=== PATIENT | male | born 1930 | race Caucasian/White ===

== ENCOUNTER 2016-09-08 10:42 | Day surgery (SDC) | payer MEDICARE, BC ==
[2016-09-03 16:10] VITALS: BMI 21.9
[~2016-09-08 10:42] MED LIST: ALPRAZolam 0.25 MG TAB PO PRN; ALPRAZolam 0.5 MG TAB PO PRN; ASPIRIN 325 MG TAB PO STA; SODIUM CHLORIDE 0.9% 1,000 ML in EMPTY BAG 1 BAG IV ONE
[2016-09-08 11:22] LABS: Anion Gap 12 mmol/L; Blood Urea Nitrogen 24 mg/dL (9-20); Calcium 9.2 mg/dL (8.4-10.2); Carbon Dioxide 23 mmol/L (22-30); Chloride 105 mmol/L (98-107); Glucose 84 mg/dL (74-99); Non-African American GFR(MDRD) >60 (>60 ml/min/1.73 sqM); Potassium 4.4 mmol/L (3.5-5.1); Sodium 140 mmol/L (137-145)
[2016-09-08 11:31] LABS: INR 1.4 (<1.1); Prothrombin Time 13.4 sec (9.0-12.0)
[2016-09-08 11:49] LABS: Anisocytosis Slight; Basophils % (A) 1 %; CH 22.8; CHCM 30.8; Eosinophils # (A) 0.1 k/uL (0-0.7); Eosinophils % (A) 1 %; HDW 3.24; Hypochromasia Marked; Luc # (Auto) 0.17; Luc % (Auto) 3; Lymphocytes # (A) 1.3 k/uL (1.0-4.8); Lymphocytes % (A) 24 %; MCH 23.3 pg (25.0-35.0); MCHC 31.3 g/dL (31.0-37.0); MCV 74.3 fL (80.0-100.0); Mean Platelet Volume 6.8; Microcytosis Moderate; Monocytes # (A) 0.3 k/uL (0-1.0); Monocytes % (A) 5 %; Neutrophils # (A) 3.6 k/uL (1.3-7.7); Neutrophils % (A) 67 %; RDW 17.7 % (11.5-15.5); WBC 5.4 k/uL (3.8-10.6); WBC (Perox) 5.42
[2016-09-08] MEDS ORDERED: MIDAZOLAM 2 MG/2 ML VIAL IV ONE (15:32)
[2016-09-08] MEDS ORDERED: LIDOCAINE 2% INJ 20 MG/ML SQ ONE (15:34)
[2016-09-08] MEDS ORDERED: HEPARIN SODIUM 1,000 UN/ML (10ML VL) IV ONE (15:40)
[2016-09-08] MEDS ORDERED: NITROGLYCERIN 1000MCG/10ML SYRINGE INTRAARTER ONE (16:07)
[2016-09-08] MEDS: niCARdipine Syringe (1,000 mcg/10 mL) INTRAARTER ONE ×2 (16:07→16:11)
[2016-09-08] MEDS ORDERED: HYDROmorphone 2 MG/ML 1 ML SYRINGE IVP ONE (16:09)
[2016-09-08] MEDS ORDERED: IODIXANOL 320 MG/ML 100 ML IV ONE ×3 (16:16)
[2016-09-08] MEDS ORDERED: CLOPIDOGREL 75 MG TAB PO ONE (16:20)
[2016-09-08] MEDS ORDERED: DOCUSATE 100 MG CAP PO PRN (16:22)
[2016-09-08] MEDS ORDERED: SODIUM CHLORIDE 0.9% 1,000 ML IV SCH (16:30)
--- NOTE | 2016-09-08 16:50 | IR ---
Fluoroscopy HISTORY: Peripheral vascular disease 11.2 minutes fluoroscopy time supplied to the referring clinician. 478 intraoperative C-arm images d ocument the procedure. See dictated report from cardiology.
[2016-09-08] MEDS ORDERED: WARFARIN 3 MG TAB PO SCH (18:00)
[2016-09-08] MEDS: CALCIUM CARB-VIT D 500MG-200UN 1 EACH TAB PO SCH (20:18)
[2016-09-08] MEDS: GABAPENTIN 300 MG CAP PO SCH (20:18)
[2016-09-08] MEDS ORDERED: ATORVASTATIN 40 MG TAB PO SCH (21:00)
[2016-09-09 05:52] VITALS: PULSE 72; RESP 18
[2016-09-09 06:48] LABS: Non-African American GFR(MDRD) >60 (>60 ml/min/1.73 sqM)
[2016-09-09] MEDS ORDERED: PANTOPRAZOLE 40 MG TABLET PO SCH (07:30)
[2016-09-09 08:11] LABS: Anisocytosis Slight; Basophils % (A) 0 %; CH 22.5; CHCM 30.3; Eosinophils % (A) 1 %; HCT 27.9 % (39.0-53.0); HDW 3.17; HGB 8.9 gm/dL (13.0-17.5); Hypochromasia Marked; Luc # (Auto) 0.08; Luc % (Auto) 2; Lymphocytes # (A) 0.4 k/uL (1.0-4.8); Lymphocytes % (A) 9 %; MCH 23.7 pg (25.0-35.0); MCHC 31.7 g/dL (31.0-37.0); MCV 74.6 fL (80.0-100.0); Mean Platelet Volume 7.1; Microcytosis Moderate; Monocytes # (A) 0.3 k/uL (0-1.0); Monocytes % (A) 6 %; Neutrophils # (A) 3.6 k/uL (1.3-7.7); Neutrophils % (A) 81 %; RBC 3.74 m/uL (4.30-5.90); RDW 17.6 % (11.5-15.5); WBC 4.4 k/uL (3.8-10.6); WBC (Perox) 4.35
[2016-09-09 08:19] LABS: Anion Gap 10 mmol/L; Blood Urea Nitrogen 23 mg/dL (9-20); Calcium 8.6 mg/dL (8.4-10.2); Carbon Dioxide 21 mmol/L (22-30); Chloride 108 mmol/L (98-107); Glucose 162 mg/dL (74-99); Sodium 139 mmol/L (137-145)
[2016-09-09] MEDS ORDERED: CLOPIDOGREL 75 MG TAB PO SCH (09:00)
[2016-09-09] MEDS ORDERED: FUROSEMIDE 20 MG TAB PO SCH (09:00)
[2016-09-09] MEDS ORDERED: ATENOLOL 50 MG TAB PO SCH (09:00)
[2016-09-09] MEDS ORDERED: ASPIRIN 81 MG CHEW PO SCH (09:00)
--- NOTE | 2016-09-09 09:08 | PCN ---
PERCUTANEOUS PERIPHERAL INTERVENTION DATE OF SERVICE: 09/08/2016 PERFORMING PHYSICIAN: Rd Candelario MD, gambling box person. PROCEDURE PERFORMED: 1. Selective left SFA angiogram. 2. Selective left popliteal angiogram. 3. Selective left below the knee angiogram. 4. Selective right common femoral artery angiogram. 5. An atherectomy of the left popliteal artery. 6. Successful balloon angioplasty of the left popliteal using 6.0 x 40 mm drug coated balloon with a good angiographic result. INDICATION: This is a pleasant 85-year-old gentleman who was experienced left leg discomfort. He is known to have severe PAD and he is known to have severe disease involving the left popliteal. APPROACH: Right common femoral artery. COMPLICATIONS: None. LEVEL OF SEDATION: Moderate with a sedation length of 42 minutes. PROCEDURE DESCRIPTION: After obtaining an informed consent, the patient was brought to the cardiac laborer steel handling. The right common femoral artery was cannulated using micropuncture technique. The micropuncture wire passed easily then I placed a 6 Kosovan sheath in the right common femoral artery. Subsequently, I did select the left SFA using a 5 Kosovan Rim catheter with 0.035 advantage wire. After that, I did exchange by 6 Kosovan 11 cm sheath into 6 Kosovan 55 cm sheath using the advantage wire. The tip of the long sheath was positioned in the left common femoral artery. Subsequently, I did wire the left SFA and left popliteal using a 0.035 advantage wire. I did perform an angiogram of the left SFA, left popliteal and left below the knee. After that, I did exchange my 0.035 advantage wire into 0.014 wire using an 0.035 quick cross catheter. After that, I did multiple runs of atherectomy using a TurboHawk device. Then I did balloon angioplasty initially using 5.0 and then 6.0 mm balloon and the following angiogram showed good angiographic results. At that point, I did exchange my long sheath into short sheath using 0.035 advantage wire. The procedure was completed without any complication. POSTPROCEDURE MANAGEMENT: 1. Dual antiplatelet therapy. 2. Risk factor modifications. 3. Follow up with the patient. KENNETH
[2016-09-09] MEDS: CALCIUM CARB-VIT D 500MG-200UN 1 EACH TAB PO SCH (09:44)
[2016-09-09] MEDS: GABAPENTIN 300 MG CAP PO SCH (09:45)
[2016-09-09] MEDS ORDERED: CHOLECALCIFEROL 1,000 UNIT TAB PO SCH (12:00)
[2016-09-09 13:01] VITALS: BP 124/64; TEMP 97.8
--- NOTE | 2016-09-10 22:36 | DS ---
DATE OF ADMISSION: 09/08/2016 DATE OF DISCHARGE: 09/09/2016 BRIEF HISTORY: This is a pleasant 85-year-old gentleman who was having left lower extremity discomfort related to intermittent claudication. He underwent a peripheral angiogram in the past and was found to have severe bilateral SFA disease. He underwent LAWNMOWER REPAIR MECHANIC of the right SFA and was brought yesterday to undergo LAWNMOWER REPAIR MECHANIC of the left SFA. He underwent successful atherectomy and balloon angioplasty of the left SFA/ popliteal, with good angiographic results and without any complication. The procedure was performed from the right groin, which is soft and non-tender and without any bruises. The patient is going to be discharged home on dual antiplatelet therapy, and will follow up with the patient as an outpatient in the office. KENNETH
[2016-09-11] MEDS ORDERED: WARFARIN 2 MG TAB PO SCH (18:00)
== END 2016-09-09 13:26 | disposition home or self-care (01) ==
LOC: CATHCVL 10:42 → 6SEL 16:13 → CATHCVL 09-09 13:26
PROVIDERS: ATTEND Internal Medicine Interventional Cardiology
DX: I70.212 Atherosclerosis of native arteries of extremities with intermittent claudication, left leg (principal); I10 Essential (primary) hypertension; E78.5 Hyperlipidemia, unspecified; I25.10 Atherosclerotic heart disease of native coronary artery without angina pectoris; Z79.01 Long term (current) use of anticoagulants; Z79.02 Long term (current) use of antithrombotics/antiplatelets; Z79.82 Long term (current) use of aspirin; Z79.899 Other long term (current) drug therapy; Z95.0 Presence of cardiac pacemaker; Z95.1 Presence of aortocoronary bypass graft
CPT/HCPCS: 37225; 99153; 99152; 80048 ×2; 85025 ×2; 85610; C1894 ×2; C1725; C1769 ×5; C1887; C1714; C2623; C1760; J2001; J2250; J1170; Q9967; J1644

== ENCOUNTER 2017-01-10 15:55 | Inpatient (IN) | payer MEDICARE, BC ==
[2017-01-10 19:52] VITALS: BMI 26.9
[2017-01-10] MEDS ORDERED: traMADol 50 MG TAB PO PRN (22:26)
[2017-01-10] MEDS ORDERED: SODIUM CHLORIDE 0.9% 1,000 ML IV SCH (22:30)
[2017-01-10] MEDS ORDERED: LEVOFLOXACIN 500MG-D5W PMX 500 MG in DEXTROSE/WATER 1 100ML.BAG IVPB SCH (23:00)
[2017-01-10] MEDS: ATORVASTATIN 40 MG TAB PO SCH (23:03)
[2017-01-10] MEDS: GABAPENTIN 300 MG CAP PO SCH (23:03)
[2017-01-10 23:07] LABS: Particle Count 3334; RBC,Urine >182 /hpf (0-5); WBC,Urine >182 /hpf (0-5)
[2017-01-10 23:09] LABS: UA Billing (MACRO vs. MICRO) MICRO
[2017-01-11] MEDS: SODIUM CHLORIDE 0.9% 1,000 ML IV SCH ×3 (00:24→22:21)
--- NOTE | 2017-01-11 06:52 | HP ---
HISTORY AND PHYSICAL DATE OF SERVICE: 01/10/2017 CHIEF COMPLAINT: Hematuria. HISTORY OF PRESENT ILLNESS: This 86-year-old gentleman with a past medical history of CAD, history of hypertension, hyperlipidemia, myocardial infarction, DJD, history of prostate cancer, prostate disorder, history of CAD stent being followed by Dr. Verdin in the [place] area had history of prostate cancer about 12 to 14 years ago. Patient had a short course of treatment. The details are not available at this time. Apparently the patient continues to have hematuria. The patient started hematuria today which is bright red in color and the patient went to [facility] and the physician from the [facility] transferred the patient directly to [facility]. Urology has been contacted and the patient admitted for further evaluation and treatment. The hemoglobin was found to be 9 at [place]. Potassium was 3.2. The patient is on aspirin, Plavix and Coumadin also. There is no history of any fever or rigors. No history of any headache, loss of consciousness or seizures at this time. PAST MEDICAL HISTORY: History of CAD, history of hypertension, hyperlipidemia, history of myocardial infarction, history of prostate cancer, history of DJD, history of CAD, stent, history of pacemaker and peripheral vascular disease. MEDICATIONS PRIOR TO ADMISSION: 1. Vitamin D3, 2000 daily. 2. Vitamin D3 1 daily. 3. Coumadin 3 mg Tuesday, Tuesday, Tuesday, , Tuesday and Coumadin 2 mg Tuesday and Tuesday. 4. Protonix 40 mg daily. 5. Neurontin 300 mg p.o. t.i.d. 6. Lasix 40 mg . 7. Plavix 75 mg p.o. daily. 8. Lipitor 40 mg q.h.s. 9. Tenormin 50 mg p.o. daily. 10.Aspirin 81 mg daily. ALLERGIES: Allergies are none. FAMILY HISTORY: No history of heart disease or strokes in the family. SOCIAL HISTORY: Occasional alcohol intake. No history of smoking. REVIEW OF SYSTEMS: ENT: Diminished hearing and diminished vision. CARDIOVASCULAR SYSTEM: As mentioned earlier. RESPIRATORY SYSTEM: No cough. GI: No nausea. : As mentioned earlier. NERVOUS SYSTEM: No numbness or weakness. ALLERGY/IMMUNOLOGY: No history asthma or hayfever. MUSCULOSKELETAL: As mentioned earlier. HEMATOLOGY/ONCOLOGY: No history of anemia. ENDOCRINE: No history of diabetes or hypothyroidism. CONSTITUTIONAL: As mentioned earlier. DERMATOLOGY: Negative. RHEUMATOLOGY: Negative. PSYCHIATRY: As mentioned earlier. PHYSICAL EXAMINATION: The patient is alert and oriented x3. Pulse is 70, blood pressure 166/72, respirations 15, temperature 98.1 pulse ox 100% on room air. HEENT: Conjunctivae normal. Oral mucosa moist. Neck is no jugular venous distention. No lymph node enlargement. CARDIOVASCULAR: S1, S2 normal. Ejection systolic murmur present. No S3, no S4 present. RESPIRATORY: Breath sounds diminished at the bases. No rhonchi, no crackles. ABDOMEN: Soft, nontender. No mass palpable. LEGS: No edema, no swelling. NERVOUS SYSTEM: Higher functions as mentioned earlier. Moves all 4 limbs. No focal motor or sensory deficits. LYMPHATICS: No lymphadenopathy of the neck, axillae or groin. SKIN: No ulcer, rash, or bleeding. LABS: Labs are awaited. ASSESSMENT: 1. Acute hematuria for evaluation. 2. Anemia. 3. Hypokalemia. 4. Peripheral vascular disease. 5. History of coronary artery disease, stent. 6. Hypertension. 7. Hyperlipidemia. 8. History of myocardial infarction. 9. History of degenerative joint disease. 10.Coumadin monitoring. 11.History of pacemaker. RECOMMENDATION AND DISCUSSION: In this 86-year-old gentleman who presented with multiple medical issues, at this time I recommend to continue current medications and symptomatic treatment. Recommend to hold the antiplatelet and Coumadin for now and I would recommend consult urology and cardiology consultations. Otherwise the prognosis guarded because of multiple medical issues. We will try to review the old charts. Further recommendations to follow. MMODL / IJN: [id number] / MTDD
[2017-01-11 07:50] LABS: Anisocytosis Moderate; CH 20.8; CHCM 28.8; HCT 30.2 % (39.0-53.0); HDW 4.49; HGB 8.5 gm/dL (13.0-17.5); Hypochromasia Marked; MCH 20.3 pg (25.0-35.0); MCHC 28.2 g/dL (31.0-37.0); Mean Platelet Volume 6.9; Microcytosis Marked; Poikilocytosis Moderate; RBC 4.19 m/uL (4.30-5.90); RDW 22.8 % (11.5-15.5); WBC 3.7 k/uL (3.8-10.6)
[2017-01-11 07:51] LABS: INR 2.5 (<1.2)
[2017-01-11] MEDS: CALCIUM CARB-VIT D 500MG-200UN 1 EACH TAB PO SCH (07:52)
[2017-01-11] MEDS: ATENOLOL 50 MG TAB PO SCH (07:52)
[2017-01-11] MEDS: PANTOPRAZOLE 40 MG/10 ML VIAL IVP SCH (07:52)
[2017-01-11] MEDS: GABAPENTIN 300 MG CAP PO SCH ×3 (07:52→22:40)
[2017-01-11] MEDS: FUROSEMIDE 40 MG TAB PO SCH (07:52)
[2017-01-11] MEDS: CHOLECALCIFEROL 1,000 UNIT TAB PO SCH (07:52)
[2017-01-11 08:40] LABS: Anion Gap 9 mmol/L; Blood Urea Nitrogen 29 mg/dL (9-20); Calcium 8.7 mg/dL (8.4-10.2); Carbon Dioxide 26 mmol/L (22-30); Chloride 103 mmol/L (98-107); Glucose 81 mg/dL (74-99); Non-African American GFR(MDRD) 56 (>60 ml/min/1.73 sqM); Potassium 4.1 mmol/L (3.5-5.1); Sodium 138 mmol/L (137-145)
--- NOTE | 2017-01-11 12:27 | P.CRDCN ---
History of Present Illness Consult date: 01/11/17 History of present illness: This is an 86-year-old male past medical history significant for CAD with subsequent CABG, permanent pacemaker, diabetes mellitus, hypertension, chronic atrial fibrillation on terminal makeup operator anticoagulation with coumadin and severe peripheral vascular disease. In August of this year he underwent successful balloon angioplasty of the left popiteal and stent placement to right SFA. He follows with Dr. Candelario as an outpatient. We have been asked to him in consultation for management of anticoagulation secondary to anemia. Apparently approximately one week ago he was found to have a hemoglobin of 6.5 per his primary physician and was transfused 2 units of PRBCs. Starting Tuesday he noticed bright red blood in his urine. Denies clots. Coumadin and plavix have been held since last night. At the time of my exam he is seen sitting up in bed with family at the bedside. He denies chest pain, palpitations, nausea or vomiting. He states he does feel dizzy and short of breath at times with exertion. Telemetry tracings reveal 100% ventricular paced rhythm with no ectopy. EKG has been ordered for baseline. Current cardiac medications include coumadin, lasix 40 mg daily, plavix 75 mg daily, lipitor 40 mg daily, atenolol 50 mg daily and aspirin 81 mg daily. Hgb today 8.5, INR 2.5. Review of Systems CONSTITUTIONAL: Denies fever. Denies chills. EYES: Denies blurred vision. Denies vision changes. Denies eye pain. EARS, NOSE, MOUTH & THROAT: Denies headache. Denies sore throat. Denies ear pain. CARDIOVASCULAR: Denies chest pain. Complains of intermittent shortness of breath. Denies orthopnea. Denies PND. Denies palpitations. RESPIRATORY: Denies cough. GASTROINTESTINAL: Denies abdominal pain. Denies diarrhea. Denies constipation. Denies nausea. Denies vomiting. MUSCULOSKELETAL: Denies myalgias. INTEGUMENTARY: Denies pruitis. Denies rash. NEUROLOGIC: Denies numbness. Denies tingling. Denies weakness. PSYCHIATRIC: Denies anxiety. Denies depression. ENDOCRINE: Denies fatigue. Denies weight change. Denies polydipsia. Denies polyurina. GENITOURINARY: Complains of hematuria. Denies burning or urgency with micturation. HEMATOLOGIC: Denies history of anemia. Past Medical History Past Medical History: Coronary Artery Disease (CAD), GERD/Reflux, Hyperlipidemia , Hypertension, Myocardial Infarction ([place]), Osteoarthritis (OA), Prostate Disorder, Vascular Disorder Additional Past Medical History / Comment(s): hx prostate cancer "about 12 to 14 years ago, poor circulation in legs, uses wheelchair or walker, hx gout, gets rash on back. Last Myocardial Infarction Date:: unknown History of Any Multi-Drug Resistant Organisms: None Reported Past Surgical History: Heart Catheterization With Stent, Pacemaker Additional Past Surgical History / Comment(s): donna Cataracts, stent rt leg. pacmaker places about "16 to 18 years ago" Past Anesthesia/Blood Transfusion Reactions: No Reported Reaction Date of Last Stent Placement:: unknown Type of Cardiac Device: Permanent Pacemaker Device Placement Date:: unknown Past Psychological History: No Psychological Hx Reported Smoking Status: Never smoker Past Alcohol Use History: Occasional Past Drug Use History: None Reported - Past Family History Mother Family Medical History: No Reported History Additional Family Medical History / Comment(s): . Father Family Medical History: Asthma Additional Family Medical History / Comment(s): in his 50's from asthma. Medications and Allergies Home Medications Medication Instructions Recorded Confirmed Type Atenolol [Tenormin] 50 mg PO DAILY 06/27/15 01/10/17 History Atorvastatin [Lipitor] 40 mg PO HS 06/27/15 01/10/17 History Gabapentin [Neurontin] 300 mg PO TID 06/27/15 01/10/17 History Pantoprazole Sodium [Protonix] 40 mg PO DAILY 06/27/15 01/10/17 History Cholecalciferol [Vitamin D3] 2,000 unit PO DAILY 08/26/15 01/10/17 History Clopidogrel [Plavix] 75 mg PO DAILY #90 tab 08/28/15 01/10/17 Rx Aspirin [Adult Low Dose Aspirin EC] 81 mg PO DAILY 09/07/16 01/10/17 History Warfarin [Coumadin] 2 mg PO SUSA 09/07/16 01/10/17 History Warfarin [Coumadin] 3 mg PO MOTUWETHFR 09/07/16 01/10/17 History Calcium Carbonate/Vitamin D3 1 tab PO DAILY 01/10/17 01/10/17 History [Calcium 500-Vit D3 200 Tablet] Furosemide [Lasix] 40 mg PO DAILY 01/10/17 01/10/17 History Allergies Allergy/AdvReac Type Severity Reaction Status Date / Time No Known Allergies Allergy Verified 01/10/17 18:59 Physical Exam Vitals: Vital Signs Temp Pulse Resp BP Pulse Ox 01/11/17 10:20 72 16 01/11/17 08:00 72 16 01/11/17 07:00 97.1 F L 72 16 129/61 96 01/11/17 00:00 70 15 01/10/17 18:43 98.1 F 70 15 166/72 100 Intake and Output 01/10/17 01/11/17 01/11/17 22:59 06:59 14:59 Intake Total 550 Output Total 100 500 Balance -100 50 Intake: Intake, IV Titration 550 Amount Levofloxacin 500Mg-D5w 100 Pmx 500 mg In Dextrose/ Water 1 100ml.bag @ 100 mls/hr IVPB Q24H [facility] Rx#: [id number] Sodium Chloride 0.9% 1, 450 000 ml @ 75 mls/hr IV . [id number] [facility] Rx#:[id number] Output: Urine 100 500 Other: Voiding Method Urinal Urinal Weight 73.5 kg GENERAL: This is a 86-year-old male in no apparent distress at the time of my examination. HEENT: Head is atraumatic, normocephalic. Pupils are equal, round. Sclerae anicteric. Conjunctivae are clear. Mucous membranes of the mouth are moist. Neck is supple. There is no jugular venous distention. No carotid bruit is heard. LUNGS: Clear to auscultation no wheezes, rales or rhonchi. No chest wall tenderness is noted on palpation or with deep breathing. HEART: Regular rate and rhythm without murmurs, rubs or gallops. S1 and S2 heard. ABDOMEN: Soft, nontender. Bowel sounds are heard. No organomegaly noted. EXTREMITIES: Trace right lower extremity edema, nonpitting. No edema left lower extremity. NEUROLOGIC: Patient is awake, alert and oriented x3. Results 01/11/17 07:16 01/11/17 07:16 Coagulation 01/11/17 Range/Units 07:16 PT 24.0 H (9.0-12.0) sec CBC 01/11/17 Range/Units 07:16 WBC 3.7 L (3.8-10.6) k/uL RBC 4.19 L (4.30-5.90) m/uL Hgb 8.5 L (13.0-17.5) gm/dL Hct 30.2 L (39.0-53.0) % Plt Count 194 (150-450) k/uL Comprehensive Metabolic Panel 01/11/17 Range/Units 07:16 Sodium 138 (137-145) mmol/L Potassium 4.1 (3.5-5.1) mmol/L Chloride 103 (98-107) mmol/L Carbon Dioxide 26 (22-30) mmol/L BUN 29 H (9-20) mg/dL Creatinine 1.22 (0.66-1.25) mg/dL Glucose 81 (74-99) mg/dL Calcium 8.7 (8.4-10.2) mg/dL Current Medications Generic Name Dose Route Start Last Admin Trade Name Freq PRN Reason Stop Dose Admin Acetaminophen 500 mg 01/11/17 00:11 Tylenol Tab PO Q6HR PRN Fever and/ or MILD Pain Alprazolam 0.25 mg 01/11/17 00:11 Xanax PO TID PRN Anxiety Atenolol 50 mg 01/11/17 09:00 01/11/17 07:52 Tenormin PO 50 mg DAILY [facility] Administration Atorvastatin Calcium 40 mg 01/10/17 22:30 01/10/17 23:03 Lipitor PO 40 mg HS [facility] Administration Calcium Carbonate 1 each 01/11/17 09:00 01/11/17 07:52 Oscal 500+D PO 1 each DAILY [facility] Administration Cholecalciferol 2,000 unit 01/11/17 09:00 01/11/17 07:52 Vitamin D3 PO 2,000 unit DAILY [facility] Administration Furosemide 40 mg 01/11/17 09:00 01/11/17 07:52 Lasix PO 40 mg DAILY [facility] Administration Gabapentin 300 mg 01/10/17 22:30 01/11/17 07:52 Neurontin PO 300 mg TID [facility] Administration Sodium Chloride 1,000 mls @ 75 mls/hr 01/10/17 23:15 01/11/17 00:24 Saline 0.9% IV 75 mls/hr .[id number] [facility] Administration Pantoprazole Sodium 40 mg 01/11/17 09:00 01/11/17 07:52 Protonix IVP 40 mg DAILY [facility] Administration Tramadol HCl 50 mg 01/10/17 22:26 Ultram PO QID PRN MODERATE Pain Intake and Output 01/10/17 01/11/17 01/11/17 22:59 06:59 14:59 Intake Total 550 Output Total 100 500 Balance -100 50 Intake: Intake, IV Titration 550 Amount Levofloxacin 500Mg-D5w 100 Pmx 500 mg In Dextrose/ Water 1 100ml.bag @ 100 mls/hr IVPB Q24H [facility] Rx#: [id number] Sodium Chloride 0.9% 1, 450 000 ml @ 75 mls/hr IV . [id number] [facility] Rx#:[id number] Output: Urine 100 500 Other: Voiding Method Urinal Urinal Weight 73.5 kg 01/11/17 07:16 01/11/17 07:16 Assessment and Plan Assessment: ASSESSMENT 1. Hypochromic microcytic anemia 2. Paroxysmal atrial fibrillation on terminal makeup operator anticoagulation with coumadin 3. Severe peripheral vascular disease with recent balloon angioplasty and right SFA stenting 4. History of permanent pacemaker implantation 5. History of stable coronary artery disease 6. Hyperlipidemia PLAN Further evaluation with possible hematology or GI consultation to confirm the source of anemia. Hold coumadin and plavix at this time until hemoglobin has stabilized. These medications should be restarted as soon as is possible for continued thromboembolic event prevention as well as protection of recent SFA stent. This risk has been explained to the patient and the family. Feel free to call with any further questions or concerns. Nurse Practitioner note has been reviewed, I agree with a documented findings and plan of care. Patient was seen and examined.
--- NOTE | 2017-01-11 17:50 | P.GSCN ---
History of Present Illness Consult date: 01/11/17 Reason for Consult: gross hematuria History of present illness: 86 yo male from [place]. Gross hematuria since tuesday. Went to the er where an Attempt at olson catheter failed He has a history of prostate cancer treated with radiation therapy about 12 years ago in [place]. He hasnt followed with a urologist since. Prior to tuesday he hasnt had any problems voiding He is on blood thinners for his cardiac issues. His urine looks inflammed or infected. He was having problems voiding yesterday but less so today. No upper tract studies have been done. His cr is 1.2 He has anemia of uncertain cause His hgb was 6 last week before the hematuria He received 2 units of blood then. Review of Systems - Constitutional Reports weakness - Genitourinary Reports as per HPI Past Medical History Past Medical History: Coronary Artery Disease (CAD), GERD/Reflux, Hyperlipidemia , Hypertension, Myocardial Infarction ([place]), Osteoarthritis (OA), Prostate Disorder, Vascular Disorder Additional Past Medical History / Comment(s): hx prostate cancer "about 12 to 14 years ago, poor circulation in legs, uses wheelchair or walker, hx gout, gets rash on back. Last Myocardial Infarction Date:: unknown History of Any Multi-Drug Resistant Organisms: None Reported Past Surgical History: Heart Catheterization With Stent, Pacemaker Additional Past Surgical History / Comment(s): donna Cataracts, [facility] "16 to 18 years [facility]" Past Anesthesia/Blood Transfusion Reactions: No Reported Reaction Date of Last Stent Placement:: unknown Type of Cardiac Device: Permanent Pacemaker Device Placement Date:: unknown Past Psychological History: No Psychological Hx Reported Smoking Status: Never smoker Past Alcohol Use History: Occasional Past Drug Use History: None Reported - Past Family History Mother Family Medical History: No Reported History Additional Family Medical History / Comment(s): . Father Family Medical History: Asthma Additional Family Medical History / Comment(s): in his 50's from asthma. Medications and Allergies Home Medications Medication Instructions Recorded Confirmed Type Atenolol [Tenormin] 50 mg PO DAILY 06/27/15 01/10/17 History Atorvastatin [Lipitor] 40 mg PO HS 06/27/15 01/10/17 History Gabapentin [Neurontin] 300 mg PO TID 06/27/15 01/10/17 History Pantoprazole Sodium [Protonix] 40 mg PO DAILY 06/27/15 01/10/17 History Cholecalciferol [Vitamin D3] 2,000 unit PO DAILY 08/26/15 01/10/17 History Clopidogrel [Plavix] 75 mg PO DAILY #90 tab 08/28/15 01/10/17 Rx Aspirin [Adult Low Dose Aspirin EC] 81 mg PO DAILY 09/07/16 01/10/17 History Warfarin [Coumadin] 2 mg PO SUSA 09/07/16 01/10/17 History Warfarin [Coumadin] 3 mg PO MOTUWETHFR 09/07/16 01/10/17 History Calcium Carbonate/Vitamin D3 1 tab PO DAILY 01/10/17 01/10/17 History [Calcium 500-Vit D3 200 Tablet] Furosemide [Lasix] 40 mg PO DAILY 01/10/17 01/10/17 History Allergies Allergy/AdvReac Type Severity Reaction Status Date / Time No Known Allergies Allergy Verified 01/10/17 18:59 Surgical - Exam Vital Signs Temp Pulse Resp BP Pulse Ox 98.1 F 70 15 166/72 100 01/10/17 18:43 01/10/17 18:43 01/10/17 18:43 01/10/17 18:43 01/10/17 18:43 - General well developed, well nourished, no distress - ENT no hearing loss - Neck trachea midline - Respiratory normal expansion, normal respiratory effort - Abdomen Abdomen: soft, non tender - Genitourinary The penis is uncircumcised and normal scrotum and testes are normal The prostate is flat c/w previous radiation. normal penis with no external lesions - Rectum Rectum: normal sphincter tone - Integumentary no rash, no growths - Neurologic normal coordination, normal sensation - Musculoskeletal normal posture - Psychiatric oriented to time, oriented to person, oriented to place, speech is normal, memory intact Results - Labs 01/11/17 07:16 01/11/17 07:16 Abnormal Lab Results - Last 24 Hours (Table) 01/10/17 01/11/17 01/11/17 Range/Units 22:50 07:16 07:16 WBC 3.7 L (3.8-10.6) k/uL RBC 4.19 L (4.30-5.90) m/uL Hgb 8.5 L (13.0-17.5) gm/dL Hct 30.2 L (39.0-53.0) % MCV 72.0 L (80.0-100.0) fL MCH 20.3 L (25.0-35.0) pg MCHC 28.2 L (31.0-37.0) g/dL RDW 22.8 H (11.5-15.5) % PT (9.0-12.0) sec INR (<1.2) BUN 29 H (9-20) mg/dL Urine RBC >182 H (0-5) /hpf Urine WBC >182 H (0-5) /hpf 01/11/17 Range/Units 07:16 WBC (3.8-10.6) k/uL RBC (4.30-5.90) m/uL Hgb (13.0-17.5) gm/dL Hct (39.0-53.0) % MCV (80.0-100.0) fL MCH (25.0-35.0) pg MCHC (31.0-37.0) g/dL RDW (11.5-15.5) % PT 24.0 H (9.0-12.0) sec INR 2.5 H (<1.2) BUN (9-20) mg/dL Urine RBC (0-5) /hpf Urine WBC (0-5) /hpf Microbiology - Last 24 Hours (Table) 01/10/17 22:50 Urine Culture - Preliminary Urine,Voided Diabetes panel 01/11/17 Range/Units 07:16 Sodium 138 (137-145) mmol/L Potassium 4.1 (3.5-5.1) mmol/L Chloride 103 (98-107) mmol/L Carbon Dioxide 26 (22-30) mmol/L BUN 29 H (9-20) mg/dL Creatinine 1.22 (0.66-1.25) mg/dL Glucose 81 (74-99) mg/dL Calcium 8.7 (8.4-10.2) mg/dL Calcium panel 01/11/17 Range/Units 07:16 Calcium 8.7 (8.4-10.2) mg/dL Pituitary panel 01/11/17 Range/Units 07:16 Sodium 138 (137-145) mmol/L Potassium 4.1 (3.5-5.1) mmol/L Chloride 103 (98-107) mmol/L Carbon Dioxide 26 (22-30) mmol/L BUN 29 H (9-20) mg/dL Creatinine 1.22 (0.66-1.25) mg/dL Glucose 81 (74-99) mg/dL Calcium 8.7 (8.4-10.2) mg/dL Adrenal panel 01/11/17 Range/Units 07:16 Sodium 138 (137-145) mmol/L Potassium 4.1 (3.5-5.1) mmol/L Chloride 103 (98-107) mmol/L Carbon Dioxide 26 (22-30) mmol/L BUN 29 H (9-20) mg/dL Creatinine 1.22 (0.66-1.25) mg/dL Glucose 81 (74-99) mg/dL Calcium 8.7 (8.4-10.2) mg/dL Assessment and Plan Assessment: Impression: Gross hematuria of unknown etiology. Possible uti, possible radiation cystitis Hematuria aggravated by anticoagulation.. Anemia of uncertain etiology aggravated by hematuria. Multiple medical illnesses Recommendations: He is on ab. His urine has been cultured. I will make him npo in case I want to do a cystoscopy, evacuation of clot and fulgaration tomorrow It will depend on how much bleeding he has over nite.
[2017-01-11] MEDS: ATORVASTATIN 40 MG TAB PO SCH (22:32)
[2017-01-12 07:35] LABS: INR 2.1 (<1.2); Prothrombin Time 20.4 sec (9.0-12.0)
--- NOTE | 2017-01-12 07:50 | P.PN ---
Subjective Progress Note Date: 01/12/17 The urine is clearing He is feeling better I will do a cysto today to assess for the cause of the hematuria and difficulty with catherization Objective - Vital Signs Vital signs: Vital Signs Temp 97.3 F L 01/12/17 07:00 Pulse 71 01/12/17 07:00 Resp 16 01/12/17 07:00 BP 144/72 01/12/17 07:00 Pulse Ox 98 01/11/17 21:43 Intake & Output 01/11/17 01/12/17 01/12/17 18:59 06:59 18:59 Intake Total 240 Output Total 550 Balance -310 Intake: Oral 240 Output: Urine 550 Other: Voiding Method Urinal Urinal # Voids 1 - Labs CBC & Chem 7: 01/11/17 07:16 01/11/17 07:16 Labs: Abnormal Lab Results - Last 24 Hours (Table) 01/11/17 01/11/17 01/11/17 Range/Units 07:16 07:16 07:16 WBC 3.7 L (3.8-10.6) k/uL RBC 4.19 L (4.30-5.90) m/uL Hgb 8.5 L (13.0-17.5) gm/dL Hct 30.2 L (39.0-53.0) % MCV 72.0 L (80.0-100.0) fL MCH 20.3 L (25.0-35.0) pg MCHC 28.2 L (31.0-37.0) g/dL RDW 22.8 H (11.5-15.5) % PT 24.0 H (9.0-12.0) sec INR 2.5 H (<1.2) BUN 29 H (9-20) mg/dL 01/12/17 Range/Units 06:28 WBC (3.8-10.6) k/uL RBC (4.30-5.90) m/uL Hgb (13.0-17.5) gm/dL Hct (39.0-53.0) % MCV (80.0-100.0) fL MCH (25.0-35.0) pg MCHC (31.0-37.0) g/dL RDW (11.5-15.5) % PT 20.4 H (9.0-12.0) sec INR 2.1 H (<1.2) BUN (9-20) mg/dL Microbiology - Last 24 Hours (Table) 01/10/17 22:50 Urine Culture - Preliminary Urine,Voided
[2017-01-12] MEDS: ATENOLOL 50 MG TAB PO SCH (08:50)
[2017-01-12] MEDS: CALCIUM CARB-VIT D 500MG-200UN 1 EACH TAB PO SCH (08:51)
[2017-01-12] MEDS: CHOLECALCIFEROL 1,000 UNIT TAB PO SCH (08:51)
[2017-01-12] MEDS: GABAPENTIN 300 MG CAP PO SCH ×3 (08:52→22:13)
[2017-01-12] MEDS: FUROSEMIDE 40 MG TAB PO SCH (08:52)
[2017-01-12] MEDS: PANTOPRAZOLE 40 MG/10 ML VIAL IVP SCH (08:53)
--- NOTE | 2017-01-12 10:31 | P.PN ---
Subjective Progress Note Date: 01/11/17 Progress note being dictated for Dr. Marquez. Interval history: This is an 86-year-old gentleman with acute hematuria in a patient with history of A. fib, on Coumadin, and multiple other medical issues. Continues to have dark bloody hematuria without clots. Evaluated by cardiology with recommendations noted. Awaiting neurology's evaluation and recommendations. Denies chest pain, palpitations or increasing shortness of breath. Denies abdominal pain or suprapubic pain. Denies flank pain. Coumadin and Plavix remain on hold. Hemoglobin 8.5, INR 2.5. Objective - Vital Signs Vital signs: Vital Signs Temp 97.1 F L 01/11/17 07:00 Pulse 72 01/11/17 08:00 Resp 16 01/11/17 08:00 BP 129/61 01/11/17 07:00 Pulse Ox 96 01/11/17 07:00 Intake & Output 01/10/17 01/11/17 01/11/17 18:59 06:59 18:59 Intake Total 550 Output Total 600 Balance -50 Weight 73.5 kg Intake: Intake, IV Titration 550 Amount Levofloxacin 500Mg-D5w 100 Pmx 500 mg In Dextrose/ Water 1 100ml.bag @ 100 mls/hr IVPB Q24H [facility] Rx#: [id number] Sodium Chloride 0.9% 1, 450 000 ml @ 75 mls/hr IV . [id number] [facility] Rx#:[id number] Output: Urine 600 Other: Voiding Method Urinal Urinal - Exam PHYSICAL EXAM: VITAL SIGNS: As above GENERAL: Eating up in bed, no acute distress HEENT: Conjunctivae normal. eyes normal. Oral mucosa moist NECK: No JVD. No thyroid enlargement. No LNs CARDIOVASCULAR: S1, S2 muffled. Positive systolic murmur, no rubs, no gallop RESPIRATION: Breath sounds diminished in the bases. No rhonchi or crackles. No bronchial breathing. ABDOMEN: Soft, nontender . No guarding. no masses palpable.Bowel sounds heard. LEGS: No edema. no swelling PSYCHIATRY: Alert and oriented -3, mood and affect normal. NERVOUS SYSTEM: Cranial N 2-12 grossly normal. Moves all 4 limbs. Diffuse weakness No focal deficits. No sensory deficit. Skin: no ulcer no rash Joints: No active swelling. No inflammation. Lymphatic system. No LN neck axilla or groin. - Labs CBC & Chem 7: 01/11/17 07:16 01/11/17 07:16 Labs: Abnormal Lab Results - Last 24 Hours (Table) 01/10/17 01/11/17 01/11/17 Range/Units 22:50 07:16 07:16 WBC 3.7 L (3.8-10.6) k/uL RBC 4.19 L (4.30-5.90) m/uL Hgb 8.5 L (13.0-17.5) gm/dL Hct 30.2 L (39.0-53.0) % MCV 72.0 L (80.0-100.0) fL MCH 20.3 L (25.0-35.0) pg MCHC 28.2 L (31.0-37.0) g/dL RDW 22.8 H (11.5-15.5) % PT (9.0-12.0) sec INR (<1.2) BUN 29 H (9-20) mg/dL Urine RBC >182 H (0-5) /hpf Urine WBC >182 H (0-5) /hpf 01/11/17 Range/Units 07:16 WBC (3.8-10.6) k/uL RBC (4.30-5.90) m/uL Hgb (13.0-17.5) gm/dL Hct (39.0-53.0) % MCV (80.0-100.0) fL MCH (25.0-35.0) pg MCHC (31.0-37.0) g/dL RDW (11.5-15.5) % PT 24.0 H (9.0-12.0) sec INR 2.5 H (<1.2) BUN (9-20) mg/dL Urine RBC (0-5) /hpf Urine WBC (0-5) /hpf Assessment and Plan Assessment: 1. [ Acute hematuria for evaluation]. 2. [ Anemia]. 3. [ Hypokalemia]. 4. [ Proximal Atrial fibrillation, on Coumadin-currently on hold]. 5. [ History of permanent pacemaker]. 6. [ CAD,hx of [place] 7. [ Peripheral vascular disease]. Plan: Continue on current medication regime ,monitoring and symptomatic treatment. Continue holding Coumadin and Plavix, close monitoring of hemoglobin with repeat labs ordered for a.m. Urology consult in place with recommendations pending. The impression and plan of care has been dictated as directed. : I performed a history and examination of this patient, discussed the same with the dictator. I agree with the dictator's note ,documented as a scribe. Any additional findings or plans will be noted.
--- NOTE | 2017-01-12 10:50 | P.PN ---
Subjective Progress Note Date: 01/12/17 Progress note being dictated for Dr. Marquez. Interval history: This is an 86-year-old gentleman with acute hematuria in a patient with history of A. fib, on Coumadin, and multiple other medical issues. Continues to have dark bloody hematuria without clots. Evaluated by cardiology with recommendations noted. Awaiting neurology's evaluation and recommendations. Denies chest pain, palpitations or increasing shortness of breath. Denies abdominal pain or suprapubic pain. Denies flank pain. Coumadin and Plavix remain on hold. Hemoglobin 8.5, INR 2.5. 01/12/2017. Hematuria clearing, no blood clots. Evaluated by urology with recommendations noted. NPO. Cystoscopy planned for today. Hemoglobin yesterday 1.2 maintained on IV fluid hydration ,Labs pending. Denies chest pain , palpitations or increased shortness of breath. Denies flank or abdominal pain. Objective - Vital Signs Vital signs: Vital Signs Temp 97.3 F L 01/12/17 07:00 Pulse 71 01/12/17 08:00 Resp 16 01/12/17 08:00 BP 144/72 01/12/17 07:00 Pulse Ox 98 01/11/17 21:43 Intake & Output 01/11/17 01/12/17 01/12/17 18:59 06:59 18:59 Intake Total 240 Output Total 550 Balance -310 Weight 73.5 kg Intake: Oral 240 Output: Urine 550 Other: Voiding Method Urinal Urinal Urinal # Voids 1 - Exam PHYSICAL EXAM: VITAL SIGNS: As above GENERAL: Eating up in bed, no acute distress HEENT: Conjunctivae normal. eyes normal. Oral mucosa moist NECK: No JVD. No thyroid enlargement. No LNs CARDIOVASCULAR: S1, S2 muffled. Positive systolic murmur, no rubs, no gallop RESPIRATION: Breath sounds diminished in the bases. No rhonchi or crackles. No bronchial breathing. ABDOMEN: Soft, nontender . No guarding. no masses palpable.Bowel sounds heard. LEGS: No edema. no swelling PSYCHIATRY: Alert and oriented -3, mood and affect normal. NERVOUS SYSTEM: Cranial N 2-12 grossly normal. Moves all 4 limbs. Diffuse weakness No focal deficits. No sensory deficit. Skin: no ulcer no rash Joints: No active swelling. No inflammation. Lymphatic system. No LN neck axilla or groin. - Labs CBC & Chem 7: 01/11/17 07:16 01/11/17 07:16 Labs: Abnormal Lab Results - Last 24 Hours (Table) 01/12/17 Range/Units 06:28 PT 20.4 H (9.0-12.0) sec INR 2.1 H (<1.2) Microbiology - Last 24 Hours (Table) 01/10/17 22:50 Urine Culture - Preliminary Urine,Voided Assessment and Plan Assessment: 1. [ Acute hematuria for evaluation]. 2. [ Anemia]. 3. [ Hypokalemia]. 4. [ Proximal Atrial fibrillation, on Coumadin-currently on hold]. 5. [ History of permanent pacemaker]. 6. [ CAD,hx of [place] 7. [ Peripheral vascular disease]. Plan: Continue on current medication regime ,monitoring and symptomatic treatment. Cystoscopy pending. Labs pending. anticoagulation remians on hold. Close monitoring of renal function and hemoglobin. The impression and plan of care has been dictated as directed. : I performed a history and examination of this patient, discussed the same with the dictator. I agree with the dictator's note ,documented as a scribe. Any additional findings or plans will be noted.
[2017-01-12] MEDS ORDERED: IV FLUID CONTINUATION 1,000 ML IV ONE (10:56)
[2017-01-12 10:57] LABS: Anisocytosis Marked; Basophils % (A) 0 %; CH 19.9; CHCM 28.3; Eosinophils # (A) 0.1 k/uL (0-0.7); Eosinophils % (A) 2 %; HCT 27.7 % (39.0-53.0); HDW 4.22; HGB 8.4 gm/dL (13.0-17.5); Hypochromasia Marked; Luc # (Auto) 0.07; Luc % (Auto) 2; Lymphocytes # (A) 0.8 k/uL (1.0-4.8); Lymphocytes % (A) 23 %; MCH 21.3 pg (25.0-35.0); MCHC 30.4 g/dL (31.0-37.0); Mean Platelet Volume 8.1; Microcytosis Marked; Monocytes # (A) 0.3 k/uL (0-1.0); Monocytes % (A) 8 %; Neutrophils # (A) 2.4 k/uL (1.3-7.7); Neutrophils % (A) 65 %; Poikilocytosis Moderate; RBC 3.95 m/uL (4.30-5.90); RDW 24.1 % (11.5-15.5); WBC 3.7 k/uL (3.8-10.6)
[2017-01-12 11:02] LABS: Anion Gap 7 mmol/L; Blood Urea Nitrogen 25 mg/dL (9-20); Calcium 8.5 mg/dL (8.4-10.2); Carbon Dioxide 24 mmol/L (22-30); Chloride 107 mmol/L (98-107); Glucose 91 mg/dL (74-99); Non-African American GFR(MDRD) >60 (>60 ml/min/1.73 sqM); Potassium 3.8 mmol/L (3.5-5.1); Sodium 138 mmol/L (137-145)
[2017-01-12] MEDS ORDERED: LACTATED RINGERS 1,000 ML IV ONE (11:23)
--- NOTE | 2017-01-12 11:34 | P.OP ---
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 They had difficulty passing the catheter and [place]. He has a history of radiation therapy for prostate cancer many years ago. He has anemia of indeterminate cause. He received blood transfusion before his gross hematuria. Has been on blood thinner for cardiac issues. In looked inflamed but cultures are not finished. He is clearing. Because of his age, the anemia, the difficulty of catheterization Description of Procedure: The patient is brought to the operating suite and on the operating table is given IV sedation. He's placed lithotomy position with a sterile prep and drape. Under direct vision the 22-Tunisian sheath and Foroblique lens identifies a normal anterior urethra. The proximal bulbar urethra which is easily dilated with the scope. I passed into the prostate it is minimally obstructing. There is no active bleeding. There is some radiation change to the mucosa. 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 There is some old blood noted. There is no clots or active bleeding noted. The rest the bladder pruitt unremarkable. Both ureteral orifices are normal. The bladder strain the patient's awake and returned recovery in good condition. He tolerated the procedure well. This given the appearance of the bladder endoscopically is that he had tear of a superficial vessel in the bladder aggravated by the anticoagulation. At this point no further urologic care is required. I do not to see him in follow-up. Anticoagulation can be resumed tomorrow.
--- NOTE | 2017-01-12 16:17 | CDI ---
In responding to this query, please exercise your independent professional judgment. The [facility] Coding Staff and Clinical Documentation Specialists appreciate your assistance in clarifying documentation, maintaining compliance with coding guidelines, accurately documenting patients condition and capturing severity of illness. The fact that a question is asked does not imply that any particular answer is desired or expected. Communication forms are a method of clarifying documentation and are not made part of the Legal Health Record. Thank you in advance for your clarification. Last Revision, December 2014 Elicia Meraz [address] [facility] [facility] [place] [address] Documentation Clarification Form Date: 01/12/2017 4:09:00 PM From: Debbie Davis Admit Date: 01/10/2017 6:31:00 PM Patient Name: Malik Wilde Visit Number: [id number] Dr. Brissa Marquez and Sebastien Vallejo NP A diagnosis of anemia lacks specificity to accurately reflect your patients severity of condition and clarification is needed. Patient history/risk factors: Hematuria AFib on Coumadin Prostate Cancer Clinical Indicators: Hemoglobin: 8.5 Hematocrit: 30.2 Per OP report on 01/12 'appearance of the bladder endoscopically is that he had tear of a superficial vessel in the bladder aggravated by the anticoagulation' Treatment: Urology consult Cystoscopy In order to capture the severity of condition, please clarify the type of anemia and etiology if known: Acute blood loss anemia Acute on chronic blood loss anemia Chronic blood loss anemia Other Anemia, please specify Unable to determine Other, please specify Please document in your progress notes and discharge summary in order to capture severity of illness and risk of mortality. Include clinical findings that support your diagnosis. FYI: Press F11 to launch patient chart. KENNETH
[2017-01-12] MEDS: SODIUM CHLORIDE 0.9% 1,000 ML IV SCH (17:27)
[2017-01-12] MEDS: ATORVASTATIN 40 MG TAB PO SCH (21:05)
[2017-01-13 07:28] LABS: INR 1.7 (<1.2)
[2017-01-13] MEDS: SODIUM CHLORIDE 0.9% 1,000 ML IV SCH ×2 (08:40→17:43)
[2017-01-13] MEDS: CALCIUM CARB-VIT D 500MG-200UN 1 EACH TAB PO SCH (08:41)
[2017-01-13] MEDS: GABAPENTIN 300 MG CAP PO SCH ×3 (08:41→21:39)
[2017-01-13] MEDS: CHOLECALCIFEROL 1,000 UNIT TAB PO SCH (08:41)
[2017-01-13] MEDS: PANTOPRAZOLE 40 MG/10 ML VIAL IVP SCH (08:41)
[2017-01-13] MEDS: FUROSEMIDE 40 MG TAB PO SCH (08:41)
[2017-01-13] MEDS: ATENOLOL 50 MG TAB PO SCH (08:41)
--- NOTE | 2017-01-13 12:35 | P.PN ---
Subjective Progress Note Date: 01/13/17 Progress note being dictated for Dr. Marquez. Interval history: This is an 86-year-old gentleman with acute hematuria in a patient with history of A. fib, on Coumadin, and multiple other medical issues. Continues to have dark bloody hematuria without clots. Evaluated by cardiology with recommendations noted. Awaiting neurology's evaluation and recommendations. Denies chest pain, palpitations or increasing shortness of breath. Denies abdominal pain or suprapubic pain. Denies flank pain. Coumadin and Plavix remain on hold. Hemoglobin 8.5, INR 2.5. 01/12/2017. Hematuria clearing, no blood clots. Evaluated by urology with recommendations noted. NPO. Cystoscopy planned for today. Hemoglobin yesterday 1.2 maintained on IV fluid hydration ,Labs pending. Denies chest pain , palpitations or increased shortness of breath. Denies flank or abdominal pain. 01/13/2017 status post cystoscopy reporting radiation cystitis,with noted tear of the superficial vessel in the bladder aggravated by anticoagulation, no clots , no active bleeding noted.tolerated procedure well.postprocedure developed urinary retention, unable to void. Bladder scanned for 6-700 MLS, Chase inserted with 100 mL return of bright red urine without clots. Anticoagulation remains on hold.labs pending.denies chest pain, palpitations or increasing shortness of breath. Objective - Vital Signs Vital signs: Vital Signs Temp 97.6 F 01/13/17 07:00 Pulse 70 01/13/17 08:00 Resp 18 01/13/17 08:00 BP 153/74 01/13/17 07:00 Pulse Ox 100 01/13/17 07:00 Intake & Output 01/12/17 01/13/17 01/13/17 18:59 06:59 18:59 Intake Total 900 1430 240 Output Total 0 1800 Balance 900 -370 240 Weight 73.5 kg 73.5 kg Intake: IV 375 Intake, IV Titration 525 600 Amount Sodium Chloride 0.9% 1, 525 600 000 ml @ 75 mls/hr IV . [id number] [facility] Rx#:[id number] Oral 830 240 Output: Urine 1800 Uretheral (Chase) 1200 Estimated Blood Loss 0 Other: Voiding Method Urinal Indwelling Catheter Indwelling Catheter # Bowel Movements 2 - Labs CBC & Chem 7: 01/12/17 06:28 01/12/17 06:28 Labs: Abnormal Lab Results - Last 24 Hours (Table) 01/13/17 Range/Units 06:58 PT 16.0 H (9.0-12.0) sec INR 1.7 H (<1.2) Microbiology - Last 24 Hours (Table) 01/10/17 22:50 Urine Culture - Final Urine,Voided Assessment and Plan Assessment: 1. [ Acute hematuria for evaluation,status post cystoscopy reporting radiation cystitis,with noted tear of the superficial vessel in the bladder aggravated by anticoagulation, no clots, no active bleeding noted. 2. [ acute blood loss Anemia,related to the above 3. Urinary retention, post procedure 4. [ Proximal Atrial fibrillation, on Coumadin-currently on hold]. 5. [ History of permanent pacemaker]. 6. [ CAD,hx of [place] 7. [ Peripheral vascular disease]. Plan: Continue on current medication regime ,monitoring and symptomatic treatment. Labs pending. anticoagulation remians on hold. Close monitoring of renal function and hemoglobin.continue monitoring overnight as per urology recommendations. Discharge planning in progress for tomorrow. The impression and plan of care has been dictated as directed. : I performed a history and examination of this patient, discussed the same with the dictator. I agree with the dictator's note ,documented as a scribe. Any additional findings or plans will be noted.
[2017-01-13 12:43] LABS: Anisocytosis Moderate; Basophils % (A) 0 %; CH 20.6; CHCM 28.1; Eosinophils # (A) 0.1 k/uL (0-0.7); Eosinophils % (A) 1 %; HCT 30.9 % (39.0-53.0); HDW 4.52; HGB 8.7 gm/dL (13.0-17.5); Hypochromasia Marked; Luc # (Auto) 0.14; Luc % (Auto) 2; Lymphocytes # (A) 0.8 k/uL (1.0-4.8); Lymphocytes % (A) 14 %; MCH 20.7 pg (25.0-35.0); MCHC 28.3 g/dL (31.0-37.0); MCV 73.2 fL (80.0-100.0); Mean Platelet Volume 8.2; Microcytosis Marked; Monocytes # (A) 0.4 k/uL (0-1.0); Monocytes % (A) 7 %; Neutrophils # (A) 4.2 k/uL (1.3-7.7); Neutrophils % (A) 75 %; Poikilocytosis Moderate; RBC 4.22 m/uL (4.30-5.90); RDW 22.4 % (11.5-15.5); WBC 5.5 k/uL (3.8-10.6); WBC (Perox) 5.32
--- NOTE | 2017-01-13 12:48 | P.PN ---
Subjective Progress Note Date: 01/13/17 The patient went into retention last night after his cystoscopy. The bladder had 750 mL. mL. A catheter was placed. Secondary urothelial bleeding occurred from his radiation cystitis. The catheter will remain in place a couple of days. We will continue to observe him overnight to make sure no clots occur. Objective - Vital Signs Vital signs: Vital Signs Temp 97.6 F 01/13/17 07:00 Pulse 70 01/13/17 08:00 Resp 18 01/13/17 08:00 BP 153/74 01/13/17 07:00 Pulse Ox 100 01/13/17 07:00 Intake & Output 01/12/17 01/13/17 01/13/17 18:59 06:59 18:59 Intake Total 900 1430 240 Output Total 0 1800 Balance 900 -370 240 Weight 73.5 kg 73.5 kg Intake: IV 375 Intake, IV Titration 525 600 Amount Sodium Chloride 0.9% 1, 525 600 000 ml @ 75 mls/hr IV . [id number] [facility] Rx#:[id number] Oral 830 240 Output: Urine 1800 Uretheral (Chase) 1200 Estimated Blood Loss 0 Other: Voiding Method Urinal Indwelling Catheter Indwelling Catheter # Bowel Movements 2 - Labs CBC & Chem 7: 01/13/17 06:58 01/12/17 06:28 Labs: Abnormal Lab Results - Last 24 Hours (Table) 01/13/17 01/13/17 Range/Units 06:58 06:58 RBC 4.22 L (4.30-5.90) m/uL Hgb 8.7 L (13.0-17.5) gm/dL Hct 30.9 L (39.0-53.0) % MCV 73.2 L (80.0-100.0) fL MCH 20.7 L (25.0-35.0) pg MCHC 28.3 L (31.0-37.0) g/dL RDW 22.4 H (11.5-15.5) % Plt Count 121 L (150-450) k/uL Lymphocytes # 0.8 L (1.0-4.8) k/uL PT 16.0 H (9.0-12.0) sec INR 1.7 H (<1.2) Microbiology - Last 24 Hours (Table) 01/10/17 22:50 Urine Culture - Final Urine,Voided
[2017-01-13 12:49] LABS: Anion Gap 7 mmol/L; Blood Urea Nitrogen 20 mg/dL (9-20); Calcium 8.8 mg/dL (8.4-10.2); Carbon Dioxide 26 mmol/L (22-30); Chloride 105 mmol/L (98-107); Glucose 80 mg/dL (74-99); Non-African American GFR(MDRD) >60 (>60 ml/min/1.73 sqM); Potassium 3.8 mmol/L (3.5-5.1); Sodium 138 mmol/L (137-145)
[2017-01-13] MEDS: ATORVASTATIN 40 MG TAB PO SCH (21:39)
[2017-01-14 07:31] LABS: Anisocytosis Marked; Basophils % (A) 0 %; CH 20.4; CHCM 29.1; Eosinophils % (A) 1 %; HCT 26.9 % (39.0-53.0); HDW 4.23; Hypochromasia Marked; Luc % (Auto) 2; Lymphocytes # (A) 0.8 k/uL (1.0-4.8); Lymphocytes % (A) 14 %; MCH 20.9 pg (25.0-35.0); MCHC 29.9 g/dL (31.0-37.0); MCV 69.8 fL (80.0-100.0); Mean Platelet Volume 7.2; Microcytosis Marked; Monocytes # (A) 0.4 k/uL (0-1.0); Monocytes % (A) 7 %; Neutrophils # (A) 4.8 k/uL (1.3-7.7); Neutrophils % (A) 77 %; Poikilocytosis Moderate; RBC 3.85 m/uL (4.30-5.90); RDW 24.8 % (11.5-15.5); WBC 6.2 k/uL (3.8-10.6); WBC (Perox) 6.86
--- NOTE | 2017-01-14 07:32 | P.PN ---
Subjective Progress Note Date: 01/14/17 The patient is stable. There is still old blood in the catheter. The clot is starting to dissolving come out. We will continue to observe him and tell us clears. Catheter can come out when it clears. Objective - Vital Signs Vital signs: Vital Signs Temp 98.8 F 01/14/17 07:00 Pulse 71 01/14/17 07:00 Resp 20 01/14/17 07:00 BP 134/72 01/14/17 07:00 Pulse Ox 97 01/14/17 07:00 Intake & Output 01/13/17 01/14/17 01/14/17 18:59 06:59 18:59 Intake Total 240 1780 Output Total 750 600 Balance -510 1180 Weight 73.5 kg Intake: Intake, IV Titration 600 Amount Sodium Chloride 0.9% 1, 600 000 ml @ 75 mls/hr IV . [id number] [facility] Rx#:[id number] Oral 240 1180 Output: Urine 750 600 Uretheral (Chase) 600 Other: Voiding Method Indwelling Catheter Indwelling Catheter - Labs CBC & Chem 7: 01/13/17 06:58 01/13/17 06:58 Labs: Abnormal Lab Results - Last 24 Hours (Table) 01/13/17 Range/Units 06:58 RBC 4.22 L (4.30-5.90) m/uL Hgb 8.7 L (13.0-17.5) gm/dL Hct 30.9 L (39.0-53.0) % MCV 73.2 L (80.0-100.0) fL MCH 20.7 L (25.0-35.0) pg MCHC 28.3 L (31.0-37.0) g/dL RDW 22.4 H (11.5-15.5) % Plt Count 121 L (150-450) k/uL Lymphocytes # 0.8 L (1.0-4.8) k/uL
[2017-01-14 07:33] LABS: INR 1.7 (<1.2); Prothrombin Time 16.3 sec (9.0-12.0)
[2017-01-14 07:41] LABS: Anion Gap 5 mmol/L; Blood Urea Nitrogen 17 mg/dL (9-20); Calcium 8.4 mg/dL (8.4-10.2); Carbon Dioxide 25 mmol/L (22-30); Chloride 108 mmol/L (98-107); Glucose 90 mg/dL (74-99); Non-African American GFR(MDRD) >60 (>60 ml/min/1.73 sqM); Potassium 3.6 mmol/L (3.5-5.1); Sodium 138 mmol/L (137-145)
[2017-01-14] MEDS: SODIUM CHLORIDE 0.9% 1,000 ML IV SCH ×3 (09:01→21:43)
[2017-01-14] MEDS: PANTOPRAZOLE 40 MG/10 ML VIAL IVP SCH (09:04)
[2017-01-14] MEDS: FUROSEMIDE 40 MG TAB PO SCH (09:04)
[2017-01-14] MEDS: CALCIUM CARB-VIT D 500MG-200UN 1 EACH TAB PO SCH (09:04)
[2017-01-14] MEDS: GABAPENTIN 300 MG CAP PO SCH ×3 (09:04→21:43)
[2017-01-14] MEDS: CHOLECALCIFEROL 1,000 UNIT TAB PO SCH (09:04)
[2017-01-14] MEDS: ATENOLOL 50 MG TAB PO SCH (09:04)
--- NOTE | 2017-01-14 18:09 | P.PN ---
Subjective Progress Note Date: 01/14/17 Progress note being dictated for Dr. Marquez. Interval history: This is an 86-year-old gentleman with acute hematuria in a patient with history of A. fib, on Coumadin, and multiple other medical issues. Continues to have dark bloody hematuria without clots. Evaluated by cardiology with recommendations noted. Awaiting neurology's evaluation and recommendations. Denies chest pain, palpitations or increasing shortness of breath. Denies abdominal pain or suprapubic pain. Denies flank pain. Coumadin and Plavix remain on hold. Hemoglobin 8.5, INR 2.5. 01/12/2017. Hematuria clearing, no blood clots. Evaluated by urology with recommendations noted. NPO. Cystoscopy planned for today. Hemoglobin yesterday 1.2 maintained on IV fluid hydration ,Labs pending. Denies chest pain , palpitations or increased shortness of breath. Denies flank or abdominal pain. 01/13/2017 status post cystoscopy reporting radiation cystitis,with noted tear of the superficial vessel in the bladder aggravated by anticoagulation, no clots , no active bleeding noted.tolerated procedure well.postprocedure developed urinary retention, unable to void. Bladder scanned for 6-700 MLS, Chase inserted with 100 mL return of bright red urine without clots. Anticoagulation remains on hold.labs pending.denies chest pain, palpitations or increasing shortness of breath. 01/14/2017. Continues to have blood in catheter, darkening. hemoglobin 8. Evaluated by urology this morning, recommendations noted. Denies chest pain, palpitations or increasing shortness of breath. Objective - Vital Signs Vital signs: Vital Signs Temp 98 F 01/14/17 14:59 Pulse 70 01/14/17 14:59 Resp 16 01/14/17 14:59 BP 131/60 01/14/17 14:59 Pulse Ox 98 01/14/17 14:59 Intake & Output 01/13/17 01/14/17 01/14/17 18:59 06:59 18:59 Intake Total 240 1780 600 Output Total 750 600 700 Balance -510 1180 -100 Weight 73.5 kg Intake: IV 600 Sodium Chloride 0.9% 1, 600 000 ml @ 75 mls/hr IV . [id number] [facility] Rx#:[id number] Intake, IV Titration 600 Amount Sodium Chloride 0.9% 1, 600 000 ml @ 75 mls/hr IV . [id number] [facility] Rx#:[id number] Oral 240 1180 Output: Urine 750 600 700 Uretheral (Chase) 600 Other: Voiding Method Indwelling Catheter Indwelling Catheter Indwelling Catheter # Bowel Movements 1 - Exam PHYSICAL EXAM: VITAL SIGNS: As above GENERAL: Eating up in bed, no acute distress HEENT: Conjunctivae normal. eyes normal. Oral mucosa moist NECK: No JVD. No thyroid enlargement. No LNs CARDIOVASCULAR: S1, S2 muffled. Positive systolic murmur, no rubs, no gallop RESPIRATION: Breath sounds diminished in the bases. No rhonchi or crackles. No bronchial breathing. ABDOMEN: Soft, nontender . No guarding. no masses palpable.Bowel sounds heard. LEGS: No edema. no swelling PSYCHIATRY: Alert and oriented -3, mood and affect normal. NERVOUS SYSTEM: Cranial N 2-12 grossly normal. Moves all 4 limbs. Diffuse weakness No focal deficits. No sensory deficit. Skin: no ulcer no rash Joints: No active swelling. No inflammation. Lymphatic system. No LN neck axilla or groin. - Labs CBC & Chem 7: 01/14/17 07:06 01/14/17 07:06 Labs: Abnormal Lab Results - Last 24 Hours (Table) 01/14/17 01/14/17 01/14/17 Range/Units 06:59 07:06 07:06 RBC 3.85 L (4.30-5.90) m/uL Hgb 8.0 L (13.0-17.5) gm/dL Hct 26.9 L (39.0-53.0) % MCV 69.8 L (80.0-100.0) fL MCH 20.9 L (25.0-35.0) pg MCHC 29.9 L (31.0-37.0) g/dL RDW 24.8 H (11.5-15.5) % Lymphocytes # 0.8 L (1.0-4.8) k/uL PT 16.3 H (9.0-12.0) sec INR 1.7 H (<1.2) Chloride 108 H (98-107) mmol/L Assessment and Plan Assessment: 1. [ Acute hematuria for evaluation,status post cystoscopy reporting radiation cystitis,with noted tear of the superficial vessel in the bladder aggravated by anticoagulation, no clots, no active bleeding noted. 2. [ acute blood loss Anemia,related to the above 3. Urinary retention, post procedure 4. [ Proximal Atrial fibrillation, on Coumadin-currently on hold]. 5. [ History of permanent pacemaker]. 6. [ CAD,hx of [place] 7. [ Peripheral vascular disease]. Plan: Continue on current medication regime ,monitoring and symptomatic treatment. anticoagulation remians on hold. Close monitoring of hemoglobin with repeat labs ordered for a.m..continue monitoring overnight as per urology recommendations. Discharge planning in progress for tomorrow. The impression and plan of care has been dictated as directed. : I performed a history and examination of this patient, discussed the same with the dictator. I agree with the dictator's note ,documented as a scribe. Any additional findings or plans will be noted.
[2017-01-14] MEDS: ATORVASTATIN 40 MG TAB PO SCH (21:43)
[2017-01-15 07:30] LABS: INR 1.4 (<1.2); Prothrombin Time 13.4 sec (9.0-12.0)
[2017-01-15 07:46] LABS: Anisocytosis Moderate; Basophils % (A) 0 %; CH 20.6; Eosinophils % (A) 0 %; HCT 27.1 % (39.0-53.0); HDW 4.43; HGB 7.8 gm/dL (13.0-17.5); Hypochromasia Marked; Luc # (Auto) 0.15; Luc % (Auto) 2; Lymphocytes # (A) 0.9 k/uL (1.0-4.8); Lymphocytes % (A) 11 %; MCH 20.4 pg (25.0-35.0); MCHC 28.9 g/dL (31.0-37.0); MCV 70.8 fL (80.0-100.0); Mean Platelet Volume 7.3; Microcytosis Marked; Monocytes # (A) 0.5 k/uL (0-1.0); Monocytes % (A) 7 %; Neutrophils % (A) 79 %; Poikilocytosis Moderate; RBC 3.83 m/uL (4.30-5.90); WBC 7.5 k/uL (3.8-10.6); WBC (Perox) 7.74
[2017-01-15] MEDS: ACETAMINOPHEN TAB 500 MG TAB PO PRN ×2 (08:43→21:16)
[2017-01-15] MEDS: CHOLECALCIFEROL 1,000 UNIT TAB PO SCH (09:26)
[2017-01-15] MEDS: ATENOLOL 50 MG TAB PO SCH (09:26)
[2017-01-15] MEDS: GABAPENTIN 300 MG CAP PO SCH ×3 (09:27→21:15)
[2017-01-15] MEDS: CALCIUM CARB-VIT D 500MG-200UN 1 EACH TAB PO SCH (09:27)
[2017-01-15] MEDS: PANTOPRAZOLE 40 MG/10 ML VIAL IVP SCH (09:47)
--- NOTE | 2017-01-15 10:44 | XR ---
EXAMINATION TYPE: XR chest 2V DATE OF EXAM: 01/15/2017 HISTORY: r/o Pneumonia. REFERENCE: NONE. FINDINGS: There has been a midline sternotomy and before meals bypass. There is a bipolar pacemaker i n place on the left. The heart is enlarged. There is left basilar airspace disease. There is a left effusion. The right loretta ng is clear. IMPRESSION: 1. CARDIOMEGALY. 2. LEFT BASILAR AIRSPACE DISEASE. 3. LEFT-SIDED EFFUSION.
[2017-01-15 10:46] LABS: Amorphous Sediment,Urine Rare /hpf; Appearance,Urine Bloody (Clear); Mucus,Urine Many /hpf; Particle Count 307240; RBC,Urine >182 /hpf (0-5); WBC,Urine 19 /hpf (0-5)
[2017-01-15 10:47] LABS: UA Billing (MACRO vs. MICRO) MICRO
[2017-01-15] MEDS: cefTRIAXone IN SWFI 1,000 MG/10 ML SYRINGE IVP SCH (11:01)
[2017-01-15] MEDS: FUROSEMIDE 40 MG TAB PO SCH (11:08)
--- NOTE | 2017-01-15 11:25 | P.PN ---
Progress Note - Text Progress Note Date: 01/15/17 The patient continues to have brown colored urine draining from his catheter. This represents old blood clot which has slowly liquefied. It may be reasonable to irrigate the catheter periodically to see if some of the clot can be removed easier at this time.
--- NOTE | 2017-01-15 11:57 | P.PN ---
Subjective Patient was admitted for hematuria. Patient's immaturity improved but patient started having fever will obtain UA, urine culture blood culture chest x-ray which actually showed atelectasis which is contributing to her fever patient was improved from started on Rocephin we'll await blood cultures. Constitutional: Denied any fatigue denied any fever. Cardio vascular: denied any chest pain, palpitations Gastrointestinal denied any nausea vomiting Pulmonary: Denied any shortness of breath cough Neurologic denied any new focal deficits Objective - Vital Signs Vital signs: Vital Signs Temp 101.4 F H 01/15/17 08:21 Pulse 102 H 01/15/17 11:28 Resp 16 01/15/17 11:28 BP 155/63 01/15/17 08:21 Pulse Ox 95 01/15/17 08:21 Intake & Output 01/14/17 01/15/17 01/15/17 18:59 06:59 18:59 Intake Total 600 1670 Output Total 700 800 Balance -100 870 Weight 73.5 kg Intake: IV 600 900 Sodium Chloride 0.9% 1, 600 900 000 ml @ 75 mls/hr IV . [id number] [facility] Rx#:[id number] Oral 770 Output: Urine 700 800 Uretheral (Chase) 800 Other: Voiding Method Indwelling Catheter Indwelling Catheter Indwelling Catheter # Bowel Movements 1 - Exam GENERAL: Eating up in bed, no acute distress HEENT: Conjunctivae normal. eyes normal. Oral mucosa moist NECK: No JVD. No thyroid enlargement. No LNs CARDIOVASCULAR: S1, S2 muffled. Positive systolic murmur, no rubs, no gallop RESPIRATION: Breath sounds diminished in the bases. No rhonchi or crackles. No bronchial breathing. ABDOMEN: Soft, nontender . No guarding. no masses palpable.Bowel sounds heard. LEGS: No edema. no swelling PSYCHIATRY: Alert and oriented -3, mood and affect normal. NERVOUS SYSTEM: Cranial N 2-12 grossly normal. Moves all 4 limbs. Diffuse weakness No focal deficits. No sensory deficit. Skin: no ulcer no rash Joints: No active swelling. No inflammation. Lymphatic system. No LN neck axilla or groin. - Labs CBC & Chem 7: 01/15/17 06:17 01/14/17 07:06 Labs: Abnormal Lab Results - Last 24 Hours (Table) 01/15/17 01/15/17 01/15/17 Range/Units 06:17 06:17 09:45 RBC 3.83 L (4.30-5.90) m/uL Hgb 7.8 L (13.0-17.5) gm/dL Hct 27.1 L (39.0-53.0) % MCV 70.8 L (80.0-100.0) fL MCH 20.4 L (25.0-35.0) pg MCHC 28.9 L (31.0-37.0) g/dL RDW 23.0 H (11.5-15.5) % Lymphocytes # 0.9 L (1.0-4.8) k/uL PT 13.4 H (9.0-12.0) sec INR 1.4 H (<1.2) Urine RBC >182 H (0-5) /hpf Urine WBC 19 H (0-5) /hpf Amorphous Sediment Rare H (None) /hpf Urine Mucus Many H (None) /hpf Assessment and Plan Plan: 1. hematuria for evaluation,status post cystoscopy reporting radiation cystitis ,with noted tear of the superficial vessel in the bladder aggravated by anticoagulation, no clots, no active bleeding noted. 2. Fever: Septic workup as mentioned above 3. Urinary retention, post procedure 4. Proximal Atrial fibrillation, on Coumadin-currently on hold. 5. History of permanent pacemaker. 6. CAD,hx of [place] 7. Peripheral vascular disease.
[2017-01-15] MEDS: ATORVASTATIN 40 MG TAB PO SCH (21:15)
[2017-01-16 07:31] LABS: Anisocytosis Moderate; CH 20.6; CHCM 28.8; HCT 24.9 % (39.0-53.0); HDW 4.39; HGB 7.3 gm/dL (13.0-17.5); Hypochromasia Marked; MCH 20.7 pg (25.0-35.0); MCHC 29.2 g/dL (31.0-37.0); MCV 71.1 fL (80.0-100.0); Mean Platelet Volume 6.9; Microcytosis Marked; Poikilocytosis Moderate; RDW 23.3 % (11.5-15.5); WBC 7.7 k/uL (3.8-10.6)
[2017-01-16 07:36] LABS: Anion Gap 7 mmol/L; Blood Urea Nitrogen 13 mg/dL (9-20); Calcium 8.1 mg/dL (8.4-10.2); Carbon Dioxide 23 mmol/L (22-30); Chloride 105 mmol/L (98-107); Glucose 94 mg/dL (74-99); Non-African American GFR(MDRD) >60 (>60 ml/min/1.73 sqM); Potassium 3.7 mmol/L (3.5-5.1); Sodium 135 mmol/L (137-145)
--- NOTE | 2017-01-16 09:15 | P.PN ---
Progress Note - Text Progress Note Date: 01/16/17 The patient is comfortable. His urine is clear than yesterday but still contains some old blood. Hopefully his urine will clear completely within the next 24-48 hours. The patient's hemoglobin has gradually drifted down and is currently 7.3 but he does not appear to be symptomatic as far as dizziness.
[2017-01-16] MEDS: ATENOLOL 50 MG TAB PO SCH (09:56)
[2017-01-16] MEDS: CHOLECALCIFEROL 1,000 UNIT TAB PO SCH (09:57)
[2017-01-16] MEDS: GABAPENTIN 300 MG CAP PO SCH ×3 (09:58→20:28)
[2017-01-16] MEDS: CALCIUM CARB-VIT D 500MG-200UN 1 EACH TAB PO SCH (10:05)
[2017-01-16] MEDS: PANTOPRAZOLE 40 MG/10 ML VIAL IVP SCH (10:10)
[2017-01-16] MEDS: cefTRIAXone IN SWFI 1,000 MG/10 ML SYRINGE IVP SCH (10:10)
--- NOTE | 2017-01-16 10:14 | P.PN ---
Subjective Patient was admitted for hematuria. Patient's immaturity improved but patient started having fever will obtain UA, urine culture blood culture chest x-ray which actually showed atelectasis which is contributing to her fever patient was improved from started on Rocephin we'll await blood cultures. 01/16/2017 Patient has minimal hematuria urinary lisinopril abnormal because of hematuria not sure whether patient has infection all the cultures are so far negative patient does have some bilateral infiltrate we'll use incentive spirometry and patient will be continued on Rocephin Constitutional: Denied any fatigue denied any fever. Cardio vascular: denied any chest pain, palpitations Gastrointestinal denied any nausea vomiting Pulmonary: Denied any shortness of breath cough Neurologic denied any new focal deficits Objective - Vital Signs Vital signs: Vital Signs Temp 98.9 F 01/16/17 08:06 Pulse 68 01/16/17 08:06 Resp 16 01/16/17 08:06 BP 143/66 01/16/17 08:06 Pulse Ox 96 01/16/17 08:06 Intake & Output 01/15/17 01/16/17 01/16/17 18:59 06:59 18:59 Intake Total 1010 600 Output Total 1100 650 Balance -90 -50 Weight 73.5 kg 73.5 kg Intake: IV 350 Sodium Chloride 0.9% 1, 350 000 ml @ 75 mls/hr IV . [id number] [facility] Rx#:[id number] Oral 660 600 Output: Urine 1100 650 Uretheral (Chase) 400 350 Other: Voiding Method Indwelling Catheter Indwelling Catheter Indwelling Catheter # Voids 1 1 - Exam GENERAL: Eating up in bed, no acute distress HEENT: Conjunctivae normal. eyes normal. Oral mucosa moist NECK: No JVD. No thyroid enlargement. No LNs CARDIOVASCULAR: S1, S2 muffled. Positive systolic murmur, no rubs, no gallop RESPIRATION: Breath sounds diminished in the bases. No rhonchi or crackles. No bronchial breathing. ABDOMEN: Soft, nontender . No guarding. no masses palpable.Bowel sounds heard. LEGS: No edema. no swelling PSYCHIATRY: Alert and oriented -3, mood and affect normal. NERVOUS SYSTEM: Cranial N 2-12 grossly normal. Moves all 4 limbs. Diffuse weakness No focal deficits. No sensory deficit. Skin: no ulcer no rash Joints: No active swelling. No inflammation. Lymphatic system. No LN neck axilla or groin. - Labs CBC & Chem 7: 01/16/17 06:04 01/16/17 06:04 Labs: Abnormal Lab Results - Last 24 Hours (Table) 01/15/17 01/16/17 01/16/17 Range/Units 09:45 06:04 06:04 RBC 3.50 L (4.30-5.90) m/uL Hgb 7.3 L (13.0-17.5) gm/dL Hct 24.9 L (39.0-53.0) % MCV 71.1 L (80.0-100.0) fL MCH 20.7 L (25.0-35.0) pg MCHC 29.2 L (31.0-37.0) g/dL RDW 23.3 H (11.5-15.5) % Sodium 135 L (137-145) mmol/L Calcium 8.1 L (8.4-10.2) mg/dL Urine RBC >182 H (0-5) /hpf Urine WBC 19 H (0-5) /hpf Amorphous Sediment Rare H (None) /hpf Urine Mucus Many H (None) /hpf Microbiology - Last 24 Hours (Table) 01/15/17 09:45 Urine Culture - Preliminary Urine,Catheterized Assessment and Plan Plan: 1. hematuria for evaluation,status post cystoscopy reporting radiation cystitis ,with noted tear of the superficial vessel in the bladder aggravated by anticoagulation, no clots, no active bleeding noted. 2. Fever: Workup and management as mentioned above patient may have pneumonia or atelectasis I cannot certainly rule out UTI 3. Urinary retention, post procedure 4. Proximal Atrial fibrillation, on Coumadin-currently on hold. 5. History of permanent pacemaker. 6. CAD,hx of [place] 7. Peripheral vascular disease.
[2017-01-16] MEDS: ACETAMINOPHEN TAB 500 MG TAB PO PRN ×2 (10:48→20:28)
[2017-01-16] MEDS: ATORVASTATIN 40 MG TAB PO SCH (20:28)
[2017-01-17 08:11] LABS: Anisocytosis Moderate; Basophils % (A) 0 %; CH 20.7; CHCM 28.9; Eosinophils # (A) 0.1 k/uL (0-0.7); Eosinophils % (A) 1 %; HCT 25.5 % (39.0-53.0); HDW 4.34; HGB 7.3 gm/dL (13.0-17.5); Hypochromasia Marked; Luc % (Auto) 3; Lymphocytes # (A) 0.7 k/uL (1.0-4.8); Lymphocytes % (A) 11 %; MCH 20.6 pg (25.0-35.0); MCHC 28.8 g/dL (31.0-37.0); MCV 71.5 fL (80.0-100.0); Mean Platelet Volume 7.5; Microcytosis Marked; Monocytes # (A) 0.4 k/uL (0-1.0); Monocytes % (A) 7 %; Neutrophils # (A) 4.7 k/uL (1.3-7.7); Neutrophils % (A) 78 %; Poikilocytosis Moderate; RBC 3.57 m/uL (4.30-5.90); RDW 23.3 % (11.5-15.5); WBC 6.1 k/uL (3.8-10.6); WBC (Perox) 6.36
[2017-01-17] MEDS: PANTOPRAZOLE 40 MG/10 ML VIAL IVP SCH (08:31)
[2017-01-17] MEDS: CALCIUM CARB-VIT D 500MG-200UN 1 EACH TAB PO SCH (08:31)
[2017-01-17] MEDS: GABAPENTIN 300 MG CAP PO SCH ×3 (08:31→20:54)
[2017-01-17] MEDS: CHOLECALCIFEROL 1,000 UNIT TAB PO SCH (08:31)
[2017-01-17] MEDS: ATENOLOL 50 MG TAB PO SCH (08:31)
[2017-01-17] MEDS: cefTRIAXone IN SWFI 1,000 MG/10 ML SYRINGE IVP SCH (08:35)
[2017-01-17 11:23] LABS: Manual Review Performed
[2017-01-17 11:24] LABS: Crenated RBC Present
--- NOTE | 2017-01-17 12:36 | P.PN ---
Subjective Progress Note Date: 01/17/17 Progress note being dictated for Dr. Marquez. Interval history: This is an 86-year-old gentleman with acute hematuria in a patient with history of A. fib, on Coumadin, and multiple other medical issues. Continues to have dark bloody hematuria without clots. Evaluated by cardiology with recommendations noted. Awaiting neurology's evaluation and recommendations. Denies chest pain, palpitations or increasing shortness of breath. Denies abdominal pain or suprapubic pain. Denies flank pain. Coumadin and Plavix remain on hold. Hemoglobin 8.5, INR 2.5. 01/12/2017. Hematuria clearing, no blood clots. Evaluated by urology with recommendations noted. NPO. Cystoscopy planned for today. Hemoglobin yesterday 1.2 maintained on IV fluid hydration ,Labs pending. Denies chest pain , palpitations or increased shortness of breath. Denies flank or abdominal pain. 01/13/2017 status post cystoscopy reporting radiation cystitis,with noted tear of the superficial vessel in the bladder aggravated by anticoagulation, no clots , no active bleeding noted.tolerated procedure well.postprocedure developed urinary retention, unable to void. Bladder scanned for 6-700 MLS, Chase inserted with 100 mL return of bright red urine without clots. Anticoagulation remains on hold.labs pending.denies chest pain, palpitations or increasing shortness of breath. 01/14/2017. Continues to have blood in catheter, darkening. hemoglobin 8. Evaluated by urology this morning, recommendations noted. Denies chest pain, palpitations or increasing shortness of breath. 01/15/2017 Patient was admitted for hematuria. Patient's immaturity improved but patient started having fever will obtain UA, urine culture blood culture chest x-ray which actually showed atelectasis which is contributing to her fever patient was improved from started on Rocephin we'll await blood cultures. 01/16/2017 Patient has minimal hematuria urinary lisinopril abnormal because of hematuria not sure whether patient has infection all the cultures are so far negative patient does have some bilateral infiltrate we'll use incentive spirometry and patient will be continued on Rocephin Constitutional: Denied any fatigue denied any fever. Cardio vascular: denied any chest pain, palpitations Gastrointestinal denied any nausea vomiting Pulmonary: Denied any shortness of breath cough Neurologic denied any new focal deficits 01/17/2017, maintained on Rocephin, persistent fevers, T-max 100.5. Urine culture and preliminary blood cultures negative. Hematuria continues to improve , hemoglobin 7.3. Objective - Vital Signs Vital signs: Vital Signs Temp 98.0 F 01/17/17 07:00 Pulse 76 01/17/17 07:00 Resp 18 01/17/17 07:00 BP 147/66 01/17/17 07:00 Pulse Ox 98 01/17/17 07:00 Intake & Output 01/16/17 01/17/17 01/17/17 18:59 06:59 18:59 Intake Total 540 180 Output Total 200 600 Balance 340 -420 Intake: Oral 540 180 Output: Urine 200 600 Uretheral (Chase) 200 600 Other: Voiding Method Indwelling Catheter Indwelling Catheter Indwelling Catheter # Voids 1 - Exam PHYSICAL EXAM: VITAL SIGNS: As above GENERAL: Eating up in bed, no acute distress HEENT: Conjunctivae normal. eyes normal. Oral mucosa moist NECK: No JVD. No thyroid enlargement. No LNs CARDIOVASCULAR: S1, S2 muffled. Positive systolic murmur, no rubs, no gallop RESPIRATION: Breath sounds diminished in the bases. No rhonchi or crackles. No bronchial breathing. ABDOMEN: Soft, nontender . No guarding. no masses palpable.Bowel sounds heard. LEGS: No edema. no swelling PSYCHIATRY: Alert and oriented -3, mood and affect normal. NERVOUS SYSTEM: Cranial N 2-12 grossly normal. Moves all 4 limbs. Diffuse weakness No focal deficits. No sensory deficit. Skin: no ulcer no rash Joints: No active swelling. No inflammation. Lymphatic system. No LN neck axilla or groin. - Labs CBC & Chem 7: 01/17/17 07:04 01/16/17 06:04 Labs: Abnormal Lab Results - Last 24 Hours (Table) 01/17/17 Range/Units 07:04 RBC 3.57 L (4.30-5.90) m/uL Hgb 7.3 L (13.0-17.5) gm/dL Hct 25.5 L (39.0-53.0) % MCV 71.5 L (80.0-100.0) fL MCH 20.6 L (25.0-35.0) pg MCHC 28.8 L (31.0-37.0) g/dL RDW 23.3 H (11.5-15.5) % Lymphocytes # 0.7 L (1.0-4.8) k/uL Microbiology - Last 24 Hours (Table) 01/15/17 09:25 Blood Culture - Preliminary Blood No Growth after 48 hours 01/15/17 09:25 Blood Culture - Preliminary Blood No Growth after 48 hours 01/15/17 09:45 Urine Culture - Final Urine,Catheterized Assessment and Plan Assessment: 1. [ Acute hematuria for evaluation,status post cystoscopy reporting radiation cystitis,with noted tear of the superficial vessel in the bladder aggravated by anticoagulation, no clots, no active bleeding noted. 2. [ acute blood loss Anemia,related to the above 3. Fever, workup in progress. 3. Urinary retention, post procedure 4. [ Proximal Atrial fibrillation, on Coumadin-currently on hold]. 5. [ History of permanent pacemaker]. 6. [ CAD,hx of [place] 7. [ Peripheral vascular disease]. Plan: Continue on current medication regime ,monitoring and symptomatic treatment. anticoagulation remians on hold. ID consulted. Follow cultures closely. Close monitoring of hemoglobin with repeat labs ordered for a.m.. PT/ OT. The impression and plan of care has been dictated as directed. : I performed a history and examination of this patient, discussed the same with the dictator. I agree with the dictator's note ,documented as a scribe. Any additional findings or plans will be noted.
[2017-01-17 15:56] LABS: Appearance,Urine Turbid (Clear); Bilirubin,Urine Negative (Negative); Glucose,Urine (UA) Negative (Negative); Ketones,Urine Negative (Negative); Leukocyte Esterase,Urine Large (Negative); Mucus,Urine Rare /hpf; Nitrite,Urine Negative (Negative); Particle Count 7509; Protein,Urine 2+ (Negative); RBC,Urine >182 /hpf (0-5); Specific Gravity,Urine 1.018 (1.001-1.035); UA Billing (MACRO vs. MICRO) MICRO; WBC,Urine >182 /hpf (0-5)
[2017-01-17] MEDS: ATORVASTATIN 40 MG TAB PO SCH (20:54)
[2017-01-17] MEDS: ALPRAZolam 0.25 MG TAB PO PRN (20:58)
--- NOTE | 2017-01-18 07:25 | CONS ---
CONSULTATION DATE OF SERVICE: 01/17/2017 REASON FOR CONSULTATION: Fever. HISTORY OF PRESENT ILLNESS: The patient is an 86-year-old male who has been transferred from [facility] after the patient presented with gross hematuria. In the ER at that time, they did at that time place a Chase catheter, however, failed. The patient did have a history of prostate cancer with radiation therapy about 12 years ago at [place]. Subsequently the patient has been admitted to the hospital. The patient did have a cystoscopy done on 01/12/[address] Myers where he was noticed to have possible radiation cystitis. The patient has been afebrile. On admission started running a fever on with a fever of 101.4 and repeat last night was 100.5 for which the patient did have urine and blood cultures obtained. Apparently the patient was started on Rocephin. I was asked to see the patient today for further recommendation regarding antibiotic therapy. The patient remains to be slightly weak and lethargic but not specifically for any symptoms of headache, runny nose. No chest pain or shortness of breath or cough. No abdominal pain. He continues to have a Chase catheter. Still having some hematuria, but no worsening and no swelling or redness in the legs: No problem with the IV site. REVIEW OF SYSTEMS: CONSTITUTIONAL: Positive for weakness and low-grade fever. EYES: No complaint. ENT: No complaint. RESPIRATORY: No complaint. CARDIOVASCULAR: No complaint. GENITOURINARY: As per HPI. GASTROINTESTINAL: No complaint. MUSCULOSKELETAL: No complaint. INTEGUMENTARY: No complaint. PSYCHOLOGICAL: No complaint. ENDOCRINE: No complaint. NEUROLOGIC: No complaint. PAST MEDICAL HISTORY: Significant for hypertension, hyperlipidemia, MD, osteoarthritis, prostate cancer, gastroesophageal reflux disease and coronary artery disease. PAST SURGICAL HISTORY: PTCA with stent, pacemaker placement, bilateral cataract surgery. SOCIAL HISTORY: No history of smoking, drinking or drug use. FAMILY HISTORY: Father history of asthma who in his 50s from asthma complications. ALLERGIES: No known drug allergies. MEDICATIONS: Medications include the patient is currently on Tylenol, Xanax, Tenormin, Lipitor, Os- Gonzalez D, Rocephin 1 gram daily, vitamin D3, Neurontin, Protonix, and Ultram. PHYSICAL EXAMINATION: On examination, blood pressure is 150/72 with a pulse of 73, temperature of 98.6. He is 100% on room air. General description is an elderly male, lying in bed in no distress. No tachypnea or accessory muscle of respiration use. HEENT examination shows pallor, no scleral icterus. Oral mucous membranes dry. NECK: Trachea central. There is no thyromegaly. LUNGS: Unlabored breathing. Some decreased breath sounds in the bases. No wheeze. HEART: S1, S2. Regular rate and rhythm. No added sounds. ABDOMEN: Soft, no tenderness. No guarding or rigidity. EXTREMITIES: No edema of feet. GENITOURINARY: The patient did have Chase catheter draining some blood-stained urine. No sediments. NEUROLOGICAL: Patient is awake, alert, oriented x3. Mood and affect normal. LABS: Hemoglobin is 7.3 with white count of 6.1. BUN of 13, creatinine 1.0. Electrolytes have been normal. Urine is positive with large leukocyte esterase, greater than 182 WBC. Cultures currently pending. Blood culture so far negative. DIAGNOSTIC IMPRESSION AND PLAN: Patient with a fever in a patient admitted to the hospital with hematuria requiring a cystoscopy with evidence of radiation cystitis significantly positive, likely source is urinary clinically with no other clinical focus of infection. No evidence of any pneumonia. No evidence of cellulitis or IV site infection, but I think clinically the fever is responding to Rocephin that was started by the primary team. PLAN: 1. We will keep the patient on Rocephin 1 gram IV piggyback daily. 2. Depending upon repeat urine cultures as well as blood culture and clinical response will adjust his medications further if needed. Thank you for this consultation. Will follow this patient along with you. MMODL / IJN: [id number] /
[2017-01-18] MEDS: ATENOLOL 50 MG TAB PO SCH (08:49)
[2017-01-18] MEDS: CHOLECALCIFEROL 1,000 UNIT TAB PO SCH (08:49)
[2017-01-18] MEDS: cefTRIAXone IN SWFI 1,000 MG/10 ML SYRINGE IVP SCH (08:49)
[2017-01-18] MEDS: GABAPENTIN 300 MG CAP PO SCH ×3 (08:49→21:50)
[2017-01-18] MEDS: CALCIUM CARB-VIT D 500MG-200UN 1 EACH TAB PO SCH (08:49)
[2017-01-18] MEDS: PANTOPRAZOLE 40 MG/10 ML VIAL IVP SCH (08:50)
--- NOTE | 2017-01-18 11:22 | PN ---
PROGRESS NOTE DATE OF SERVICE: 01/18/2017 REASON FOR FOLLOW UP: Fever, source likely urinary. INTERVAL HISTORY: The patient is afebrile. He is feeling better. Breathing comfortably. Denies having any chest pain, no shortness of breath or cough, no abdominal pain. His Chase catheter has been discontinued. Denies significant urinary symptoms. PHYSICAL EXAMINATION: Blood pressure 149/65 with a pulse of 71, temperature 98.6. He is 96% on room air. General description is an elderly male up in the chair, in no distress. RESPIRATORY SYSTEM: Unlabored breathing, clear to auscultation anteriorly. HEART: S1, S2. Regular rate and rhythm. ABDOMEN: Soft, no tenderness. LABS: Hemoglobin 7.8, white count 6.1 with a BUN of 13, creatinine 1.0. DIAGNOSTIC IMPRESSION AND PLAN: Patient with fever, source is likely urinary. Overall, responding to Rocephin that will be continued. Waiting for the culture to finalize. Continue supportive care. MMODL / IJN: [id number] /
--- NOTE | 2017-01-18 12:46 | P.PN ---
Subjective Progress Note Date: 01/17/17 The patients urine is clearing HIs cath will come out in the am and if he voids ok he may go home from my standpoint Objective - Vital Signs Vital signs: Vital Signs Temp 98.6 F 01/18/17 07:00 Pulse 71 01/18/17 07:00 Resp 16 01/18/17 07:00 BP 149/65 01/18/17 07:00 Pulse Ox 96 01/18/17 07:00 Intake & Output 01/17/17 01/18/17 01/18/17 18:59 06:59 18:59 Intake Total 220 Output Total 450 550 500 Balance -450 -330 -500 Weight 73.5 kg 73.5 kg Intake: Oral 220 Output: Urine 450 550 500 Other: Voiding Method Indwelling Catheter Indwelling Catheter Urinal - Labs CBC & Chem 7: 01/17/17 07:04 01/16/17 06:04 Labs: Abnormal Lab Results - Last 24 Hours (Table) 01/17/17 Range/Units 15:16 Urine Protein 2+ H (Negative) Urine Blood Large H (Negative) Ur Leukocyte Esterase Large H (Negative) Urine RBC >182 H (0-5) /hpf Urine WBC >182 H (0-5) /hpf Urine Mucus Rare H (None) /hpf Microbiology - Last 24 Hours (Table) 01/15/17 09:25 Blood Culture - Preliminary Blood No Growth after 72 hours 01/15/17 09:25 Blood Culture - Preliminary Blood No Growth after 72 hours 01/17/17 15:16 Urine Culture - Preliminary Urine,Catheterized
--- NOTE | 2017-01-18 16:32 | P.PN ---
Subjective Progress Note Date: 01/18/17 Progress note being dictated for Dr. Marquez. Interval history: This is an 86-year-old gentleman with acute hematuria in a patient with history of A. fib, on Coumadin, and multiple other medical issues. Continues to have dark bloody hematuria without clots. Evaluated by cardiology with recommendations noted. Awaiting neurology's evaluation and recommendations. Denies chest pain, palpitations or increasing shortness of breath. Denies abdominal pain or suprapubic pain. Denies flank pain. Coumadin and Plavix remain on hold. Hemoglobin 8.5, INR 2.5. 01/12/2017. Hematuria clearing, no blood clots. Evaluated by urology with recommendations noted. NPO. Cystoscopy planned for today. Hemoglobin yesterday 1.2 maintained on IV fluid hydration ,Labs pending. Denies chest pain , palpitations or increased shortness of breath. Denies flank or abdominal pain. 01/13/2017 status post cystoscopy reporting radiation cystitis,with noted tear of the superficial vessel in the bladder aggravated by anticoagulation, no clots , no active bleeding noted.tolerated procedure well.postprocedure developed urinary retention, unable to void. Bladder scanned for 6-700 MLS, Chase inserted with 100 mL return of bright red urine without clots. Anticoagulation remains on hold.labs pending.denies chest pain, palpitations or increasing shortness of breath. 01/14/2017. Continues to have blood in catheter, darkening. hemoglobin 8. Evaluated by urology this morning, recommendations noted. Denies chest pain, palpitations or increasing shortness of breath. 01/15/2017 Patient was admitted for hematuria. Patient's immaturity improved but patient started having fever will obtain UA, urine culture blood culture chest x-ray which actually showed atelectasis which is contributing to her fever patient was improved from started on Rocephin we'll await blood cultures. 01/16/2017 Patient has minimal hematuria urinary lisinopril abnormal because of hematuria not sure whether patient has infection all the cultures are so far negative patient does have some bilateral infiltrate we'll use incentive spirometry and patient will be continued on Rocephin Constitutional: Denied any fatigue denied any fever. Cardio vascular: denied any chest pain, palpitations Gastrointestinal denied any nausea vomiting Pulmonary: Denied any shortness of breath cough Neurologic denied any new focal deficits 01/17/2017, maintained on Rocephin, persistent fevers, T-max 100.5. Urine culture and preliminary blood cultures negative. Hematuria continues to improve , hemoglobin 7.3. 01/18/2017 hematuria continues to improve. Maintained on Rocephin with no further fevers. Repeat urine and blood cultures in progress. Catheter scheduled to be discontinued tomorrow per urology. Objective - Vital Signs Vital signs: Vital Signs Temp 98.6 F 01/18/17 07:00 Pulse 70 01/18/17 14:58 Resp 18 01/18/17 14:58 BP 151/68 01/18/17 14:58 Pulse Ox 97 01/18/17 14:58 Intake & Output 01/17/17 01/18/17 01/18/17 18:59 06:59 18:59 Intake Total 220 Output Total 450 550 500 Balance -450 -330 -500 Weight 73.5 kg 73.5 kg Intake: Oral 220 Output: Urine 450 550 500 Other: Voiding Method Indwelling Catheter Indwelling Catheter Urinal - Exam PHYSICAL EXAM: VITAL SIGNS: As above GENERAL: Sitting up in a chair, no acute distress HEENT: Conjunctivae normal. eyes normal. Oral mucosa moist NECK: No JVD. No thyroid enlargement. No LNs CARDIOVASCULAR: S1, S2 muffled. Positive systolic murmur, no rubs, no gallop RESPIRATION: Breath sounds diminished in the bases. No rhonchi or crackles. No bronchial breathing. ABDOMEN: Soft, nontender . No guarding. no masses palpable.Bowel sounds heard. LEGS: No edema. no swelling PSYCHIATRY: Alert and oriented -3, mood and affect normal. NERVOUS SYSTEM: Cranial N 2-12 grossly normal. Moves all 4 limbs. Diffuse weakness No focal deficits. No sensory deficit. Skin: no ulcer no rash Joints: No active swelling. No inflammation. Lymphatic system. No LN neck axilla or groin. - Labs CBC & Chem 7: 01/17/17 07:04 01/16/17 06:04 Labs: Microbiology - Last 24 Hours (Table) 01/17/17 11:13 Blood Culture - Preliminary Blood No Growth after 24 hours 01/15/17 09:25 Blood Culture - Preliminary Blood No Growth after 72 hours 01/15/17 09:25 Blood Culture - Preliminary Blood No Growth after 72 hours 01/17/17 15:16 Urine Culture - Preliminary Urine,Catheterized Assessment and Plan Assessment: 1. [ Acute hematuria for evaluation,status post cystoscopy reporting radiation cystitis,with noted tear of the superficial vessel in the bladder aggravated by anticoagulation, no clots, no active bleeding noted. 2. [ acute blood loss Anemia,related to the above 3. Fever, workup in progress. 3. Urinary retention, post procedure 4. [ Proximal Atrial fibrillation, on Coumadin-currently on hold]. 5. [ History of permanent pacemaker]. 6. [ CAD,hx of [place] 7. [ Peripheral vascular disease]. Plan: Continue on current medication regime ,monitoring and symptomatic treatment. Repeat urine and blood cultures pending. Chase catheter scheduled to be discontinued tomorrow with discharge planning in progress for tomorrow pending patient is able to void post catheter removal .Close monitoring of hemoglobin with repeat labs ordered for a.m. possible subacute rehab at discharge, as per recommendations of physical therapy. The impression and plan of care has been dictated as directed. : I performed a history and examination of this patient, discussed the same with the dictator. I agree with the dictator's note ,documented as a scribe. Any additional findings or plans will be noted.
[2017-01-18] MEDS: ALPRAZolam 0.25 MG TAB PO PRN (21:49)
[2017-01-18] MEDS: ACETAMINOPHEN TAB 500 MG TAB PO PRN (21:49)
[2017-01-18] MEDS: ATORVASTATIN 40 MG TAB PO SCH (21:50)
[2017-01-19 08:30] LABS: Anisocytosis Moderate; Basophils % (A) 1 %; CH 20.7; CHCM 28.8; Eosinophils # (A) 0.1 k/uL (0-0.7); Eosinophils % (A) 2 %; HCT 25.9 % (39.0-53.0); HDW 4.35; HGB 7.3 gm/dL (13.0-17.5); Hypochromasia Marked; Luc # (Auto) 0.17; Luc % (Auto) 4; Lymphocytes # (A) 0.6 k/uL (1.0-4.8); Lymphocytes % (A) 13 %; MCH 20.4 pg (25.0-35.0); MCHC 28.4 g/dL (31.0-37.0); MCV 71.7 fL (80.0-100.0); Mean Platelet Volume 7.3; Microcytosis Marked; Monocytes # (A) 0.3 k/uL (0-1.0); Monocytes % (A) 7 %; Neutrophils # (A) 3.4 k/uL (1.3-7.7); Neutrophils % (A) 74 %; Poikilocytosis Moderate; RDW 23.4 % (11.5-15.5); WBC 4.6 k/uL (3.8-10.6); WBC (Perox) 4.68
[2017-01-19 08:38] LABS: Anion Gap 6 mmol/L; Blood Urea Nitrogen 17 mg/dL (9-20); Calcium 8.9 mg/dL (8.4-10.2); Carbon Dioxide 25 mmol/L (22-30); Chloride 109 mmol/L (98-107); Glucose 90 mg/dL (74-99); Non-African American GFR(MDRD) >60 (>60 ml/min/1.73 sqM); Sodium 140 mmol/L (137-145)
[2017-01-19] MEDS: cefTRIAXone IN SWFI 1,000 MG/10 ML SYRINGE IVP SCH (09:00)
[2017-01-19] MEDS: ATENOLOL 50 MG TAB PO SCH (09:00)
[2017-01-19] MEDS: GABAPENTIN 300 MG CAP PO SCH (09:00)
[2017-01-19] MEDS: PANTOPRAZOLE 40 MG/10 ML VIAL IVP SCH (09:00)
[2017-01-19] MEDS: CHOLECALCIFEROL 1,000 UNIT TAB PO SCH (09:01)
[2017-01-19] MEDS: CALCIUM CARB-VIT D 500MG-200UN 1 EACH TAB PO SCH (09:01)
--- NOTE | 2017-01-19 10:44 | P.DS ---
Providers Date of admission: 01/10/17 18:31 Attending physician: Diane Tubbs Consults: 01/11/17 00:09 Consult Physician Routine Consulting Provider: Alin Myers Consult Reason/Comments: hematuria Do you want consulting provider notified?: Yes, Notify in am 01/17/17 10:50 Consult Physician Routine Consulting Provider: Aline Diaz Consult Reason/Comments: Fevers, persist. Do you want consulting provider notified?: Yes Primary care physician: Stated None Hospital Course: Final Diagnoses: 1. [ Acute hematuria for evaluation,status post cystoscopy reporting radiation cystitis,with noted tear of the superficial vessel in the bladder aggravated by anticoagulation, no clots, no active bleeding noted. 2. [ acute blood loss Anemia,related to the above 3. Fever, workup in progress. 3. Urinary retention, post procedure 4. [ Proximal Atrial fibrillation, on Coumadin-currently on hold]. 5. [ History of permanent pacemaker]. 6. [ CAD,hx of [place] 7. [ Peripheral vascular disease. Hospital course:This is an 86-year-old gentleman with acute hematuria in a patient with history of A. fib, on Coumadin, and multiple other medical issues. Patient with a recent stent and had been on aspirin, Plavix and Coumadin, which had been held. Evaluated by cardiology, urology and infectious disease.underwent cystoscopy, reporting radiation cystitis,with noted tear of the superficial vessel in the bladder aggravated by anticoagulation, no clots, no active bleeding noted.tolerated procedure well.postprocedure developed urinary retention, Chase reinserted, hematuria persisted, clearing without clots. Chase discontinued , voiding without difficulty. Hemoglobin 7.3, asymptomatic.Transfused with 1 unit PRBcs this am. Maintained on IV antibiotics. Significant clinical improvement. Cleared by consults for discharge. Patient to resume coumadin, continue holding ASA, Plavix as per Cardiology, F/U with Dr. Candelario in 1 week. Patient is being discharged to [facility] in [place] in a stable condition with guarded prognosis. The impression and plan of care has been dictated as directed. : I performed a history and examination of this patient, discussed the same with the dictator. I agree with the dictator's note ,documented as a scribe. Any additional findings or plans will be noted. Patient Condition at Discharge: Stable Plan - Discharge Summary Discharge Rx Participant: Yes New Discharge Prescriptions: New traMADol HCl [Ultram] 50 mg PO QID PRN #20 tab PRN Reason: MODERATE Pain Cefuroxime Axetil [Ceftin] 500 mg PO BID #20 tab Ferrous Sulfate [Feosol] 325 mg PO DAILY #30 tab Warfarin Sodium [Coumadin] 3 mg PO MOTUWETHFR #1 tab Warfarin Sodium [Coumadin] 2 mg PO SUSA #1 tablet Continue Gabapentin [Neurontin] 300 mg PO TID Atorvastatin [Lipitor] 40 mg PO HS Atenolol [Tenormin] 50 mg PO DAILY Pantoprazole Sodium [Protonix] 40 mg PO DAILY Cholecalciferol [Vitamin D3] 2,000 unit PO DAILY Furosemide [Lasix] 40 mg PO DAILY Calcium Carbonate/Vitamin D3 [Calcium 500-Vit D3 200 Tablet] 1 tab PO DAILY Discontinued Warfarin [Coumadin] 3 mg PO MOTUWETHFR Warfarin [Coumadin] 2 mg PO SUSA Aspirin [Adult Low Dose Aspirin EC] 81 mg PO DAILY Discharge Medication List Atenolol [Tenormin] 50 mg PO DAILY 06/27/15 [History] Atorvastatin [Lipitor] 40 mg PO HS 06/27/15 [History] Gabapentin [Neurontin] 300 mg PO TID 06/27/15 [History] Pantoprazole Sodium [Protonix] 40 mg PO DAILY 06/27/15 [History] Cholecalciferol [Vitamin D3] 2,000 unit PO DAILY 08/26/15 [History] Calcium Carbonate/Vitamin D3 [Calcium 500-Vit D3 200 Tablet] 1 tab PO DAILY [History] Furosemide [Lasix] 40 mg PO DAILY 01/10/17 [History] Cefuroxime Axetil [Ceftin] 500 mg PO BID #20 tab 01/19/17 [Rx] Ferrous Sulfate [Feosol] 325 mg PO DAILY #30 tab 01/19/17 [Rx] Warfarin Sodium [Coumadin] 2 mg PO SUSA #1 tablet 01/19/17 [Rx] Warfarin Sodium [Coumadin] 3 mg PO MOTUWETHFR #1 tab 01/19/17 [Rx] traMADol HCl [Ultram] 50 mg PO QID PRN #20 tab 01/19/17 [Rx] Follow up Appointment(s)/Referral(s): Vinicius Dobson MD [STAFF PHYSICIAN] - [address] Velvet PCP in [place] [Other] - 1 Week (after dc from [facility]) Dr. Kristin PCP at [facility] [Other] - 1 Week (while at [facility]) Rd Candelario MD [STAFF PHYSICIAN] - 1 Week Activity/Diet/Wound Care/Special Instructions: [facility], INR CBC,BMP in 3 days patient requests pneumonia and flu vaccine prior to discharge [facility] [phone] Discharge Disposition: TRANSFER TO SNF/F
[2017-01-19] MEDS ORDERED: FUROSEMIDE 10 MG/ML 2 ML VIAL IV STA (10:45)
[2017-01-19] MEDS ORDERED: FUROSEMIDE 10 MG/ML 2 ML VIAL IV ONE ×2 (12:00→14:22)
[2017-01-19 13:27] VITALS: PULSE 70
[2017-01-19 14:29] VITALS: BP 135/77; RESP 16; TEMP 98
--- NOTE | 2017-01-19 14:38 | PN ---
PROGRESS NOTE DATE OF SERVICE: 01/19/2017. REASON FOR FOLLOWUP VISIT: Urinary tract infection. INTERVAL HISTORY: The patient is afebrile. He is breathing comfortably. Denies any chest pain or shortness. No abdominal pain and no further urinary symptoms. Currently getting blood transfusion. EXAMINATION: Blood pressure 154/71 with a pulse 70, temperature 98.2. He is 99% on room air. General description is elderly male, lying in bed in no distress. RESPIRATORY SYSTEM: Unlabored breathing. Clear to auscultation anteriorly. HEART: S1, S2. Regular rate and rhythm. ABDOMEN: Soft, no tenderness. LABS: Hemoglobin 7.2, white count 4.6. DIAGNOSTIC IMPRESSION AND PLAN: Patient with fever in patient admitted to the hospital with hematuria status post cystoscopy with evidence of cystitis with a positive UA likely source urinary. Overall responded to the Rocephin with the plan to finish therapy with oral Ceftin 500 mg twice a day for another 10 days with close outpatient followup. MMODL / IJN: [id number] /
== END 2017-01-19 15:20 | DRG 699 ==
LOC: 5MS5E 18:31
PROVIDERS: ADMIT Hospitalist; ATTEND Hospitalist
PROC: 0TJB8ZZ Inspection of Bladder, Via Natural or Artificial Opening Endoscopic (ICD-10-PCS; principal; 2017-01-10)
DX: N30.41 Irradiation cystitis with hematuria (principal); D62 Acute posthemorrhagic anemia; E11.51 Type 2 diabetes mellitus with diabetic peripheral angiopathy without gangrene; I48.0 Paroxysmal atrial fibrillation; D50.9 Iron deficiency anemia, unspecified; E78.5 Hyperlipidemia, unspecified; E87.6 Hypokalemia; I10 Essential (primary) hypertension; I25.10 Atherosclerotic heart disease of native coronary artery without angina pectoris; I25.2 Old myocardial infarction; I48.2 Chronic atrial fibrillation; K21.9 Gastro-esophageal reflux disease without esophagitis; M10.9 Gout, unspecified; M19.90 Unspecified osteoarthritis, unspecified site; Y84.2 Radiological procedure and radiotherapy as the cause of abnormal reaction of the patient, or of later complication, without mention of misadventure at the time of the procedure; Z79.01 Long term (current) use of anticoagulants; Z79.02 Long term (current) use of antithrombotics/antiplatelets; Z79.82 Long term (current) use of aspirin; Z79.899 Other long term (current) drug therapy; Z82.5 Family history of asthma and other chronic lower respiratory diseases; Z85.46 Personal history of malignant neoplasm of prostate; Z92.3 Personal history of irradiation; Z95.0 Presence of cardiac pacemaker; Z95.1 Presence of aortocoronary bypass graft; Z95.5 Presence of coronary angioplasty implant and graft; R50.9 Fever, unspecified; R33.9 Retention of urine, unspecified
CPT/HCPCS: 71020; 80048; 81001; 85025; 85027; 85610; 86850; 86900; 86901; 86920; 87040; 87086